=== PATIENT | male | born 1935 | race African-American/Black ===

== ENCOUNTER 2019-06-17 22:45 | Emergency (ER) | payer MEDICARE, OTHER, SELFPAY ==
[2019-06-17 22:45] VITALS: BP 156/49; PULSE 41; RESP 18; O2SAT 98; BMI 26.2
--- NOTE | 2019-06-17 23:02 | ED.DIZZY ---
HPI - Dizziness General Chief Complaint: Dizziness Stated Complaint: possible heart attack Time Seen by Provider: 06/17/19 23:01 Source: patient Mode of arrival: ambulatory Limitations: no limitations History of Present Illness HPI Narrative: The patient was at [place] nearby [place] prior to arrival. He was still abdominal pressure, he had to go the bathroom. When he stood he felt abdominal pressure but became acutely dizzy. With the dizziness there was no visual changes, speech changes, focal weakness or numbness. He has not been confused. He remains dizzy upon arrival here in the ER. He has no chest pain or dyspnea. He had abdominal pressure, is no nausea vomiting. He has no history of syncope. He has a history of coronary artery disease. He has no history of mine, but he does have a history of cardiac catheterization with stent placement. He takes medications for hypertension. He is not diabetic. Related Data Previous Rx's Medication Instructions Recorded meclizine 25 mg PO QID PRN #20 tab 06/18/19 Allergies Allergy/AdvReac Type Severity Reaction Status Date / Time No Known Drug Allergies Allergy Verified 06/17/19 23:14 Review of Systems Review of Systems ROS Unobtainable: All systems reviewed & are unremarkable except as noted in HPI and below Constitutional Denies body ache(s), Denies chills, Denies fatigue, Denies fever(s), Denies headache(s), Denies lethargy and Denies malaise Eyes Denies change in vision ENT Ears, Nose, Mouth, and Throat: Reports dizziness, Denies facial pain and Denies headache(s) Cardiovascular Denies chest pain, Denies diaphoresis, Denies syncope, Denies leg edema, Denies dyspnea and Denies dyspnea on exertion Respiratory Denies cough, Denies dyspnea and Denies dyspnea on exertion Gastrointestinal Gastrointestinal: Denies abdominal pain, Denies diarrhea, Denies nausea and Denies vomiting Genitourinary Denies dysuria Musculoskeletal Denies back pain Integumentary/Breasts Denies lesions and Denies rash Neurologic Denies confusion, Reports dizziness, Denies syncope and Denies headache(s) Psychiatric Denies anxiety, Denies confusion and Denies depression Endocrine Denies fatigue [facility] Medical History (Updated 06/18/19 @ 04:31 by Master Corona MD) Coronary artery disease (Acute) Hypertension (Acute) Surgical History (Updated 06/18/19 @ 04:25 by Master Corona MD) S/P angioplasty with stent (Acute) Social History Smoking Status: Current every day smoker Social History Smoking Status: Current every day smoker Exam Initial Vital Signs Initial Vital Signs: Vital Signs Pulse Rate 41 L 06/17/19 22:45 Respiratory Rate 18 06/17/19 22:45 Blood Pressure 156/49 H 06/17/19 22:45 Pulse Oximetry 98 06/17/19 22:45 Const General: cooperative, healthy appearing, well developed, well groomed and other (Appears uncomfortable) HENMT Head: normocephalic and atraumatic Ears: external ears normal and TM's normal bilaterally Nose: external nose normal Face and sinus: sinuses nontender and face symmetric Mouth: oral mucosae normal and moist mucous membranes Eyes Sclera: sclerae normal Pupils: PERRL EOM: EOM intact bilaterally Neck Neck: supple, No lymphadenopathy, No midline deformity and No JVD Chest Chest: normal palpation of entire chest wall Resp Auscultation: clear to auscultation bilaterally Cardio Rate: regular rate and bradycardic Rhythm: regular rhythm Heart Sounds: S1 normal, S2 normal, no murmurs and no rubs GI Inspection: non-distended Palpation: soft, no hepatosplenomegaly and No tender Auscultation: normal bowel sounds Back/Spine/Pelvis Back: No CVA tenderness Skin General: no rashes or lesions noted and No petechiae Neuro General: alert, oriented x3, gait normal and no focal motor deficits Speech: speech normal Extrem General: full ROM, no clubbing, cyanosis or edema and no calf tenderness Psych Appearance: well kempt Mental Status: mental status grossly normal Attitude: cooperative Thought Content: normal and suicidality Judgment: judgment good Scores NIH Stroke Scale Level of Conciousness: Alert, keenly responsive Ask month/age: Answers both questions correctly. Open/close eyes, close hand: Performs both tasks correctly Best gaze horizontal: Normal Visual hawkins: No visual loss Facial palsy: Normal symetrical movement Left arm drift: No drift for full 10 sec Right arm drift: No drift for full 10 sec Left leg drift: No drift for full 10 sec Right leg drift: No drift for full 10 sec Limb ataxia: Absent Sensory on face/arms/legs: Normal, no sensory loss Best language: No aphasia, normal Dysarthria: Normal Extinction or inattention: No abnormality Total NIH Stroke scale score: 0 Course Course Narrative: On his initial evaluation, the patient was bradycardic in rate of 40s. He was in a sinus rhythm. He had improved since arrival. Later is heart rate was reestablished in 70s, remaining normal sinus rhythm. There are no other significant EKG findings. He is then asymptomatic. I am concerned that there is a significant underlying arrhythmia that may have initiated the dizziness. Does not been discovered tonight. His evaluation including head CT is otherwise benign. I did give him meclizine for dizziness, this may have helped the dizziness. He will be discharged on meclizine. He is referred back to his private doctor, Dr. Kelsey, for continued evaluation. I would recommend a cardiac monitoring evaluation Orders Ordered: ED Orders 06/17/19 22:55 Complete Blood Count AUTO DIFF Stat Comprehensive Metabolic Panel Stat Troponin & CK Cardiac Panel Stat 06/17/19 23:02 EKG-12 Lead Stat 06/17/19 23:55 CT head/brain wo con Stat 06/18/19 EKG-12 Lead Stat 06/18/19 03:13 Troponin I Stat Discontinued Medications Sodium Chloride (Normal Saline 0.9%) 1,000 mls @ 150 mls/hr IV CONT VAISHALI Last Infusion: 06/18/19 04:54 Dose: 0 mls/hr Infusion: 06/18/19 04:52 Dose: 150 mls/hr Admin: 06/17/19 23:18 Dose: 150 mls/hr Meclizine HCl (Antivert) 50 mg PO NOW ONE Stop: 06/17/19 23:56 Last Admin: 06/18/19 00:14 Dose: 50 mg Ondansetron HCl (Zofran) 4 mg IV NOW ONE Stop: 06/17/19 23:16 Last Admin: 06/17/19 23:18 Dose: 4 mg Vital Signs - 8 hr 06/17/19 22:45 06/17/19 23:11 06/17/19 23:30 Temperature Pulse Rate 41 L 37 L 39 L Respiratory Rate 18 10 L 13 Blood Pressure 156/49 H Blood Pressure [Left Arm] 122/65 122/44 L Pulse Oximetry 98 95 100 06/17/19 23:35 06/18/19 00:25 06/18/19 01:09 Temperature 97.9 F Pulse Rate 39 L 43 L 47 L Respiratory Rate 10 L 16 13 Blood Pressure Blood Pressure [Left Arm] 122/44 L 141/73 H 129/53 L Pulse Oximetry 99 98 96 06/18/19 01:44 06/18/19 02:01 06/18/19 02:30 Temperature Pulse Rate 63 50 L 65 Respiratory Rate 11 L 15 14 Blood Pressure Blood Pressure [Left Arm] 134/63 128/61 133/69 Pulse Oximetry 100 96 100 06/18/19 02:51 06/18/19 03:00 06/18/19 04:07 Temperature Pulse Rate 66 83 59 L Respiratory Rate 12 22 13 Blood Pressure Blood Pressure [Left Arm] 133/69 133/69 140/67 Pulse Oximetry 99 98 100 06/18/19 04:30 06/18/19 04:53 Temperature Pulse Rate 70 74 Respiratory Rate 16 20 Blood Pressure 116/77 Blood Pressure [Left Arm] 140/80 Pulse Oximetry 97 98 MDM - Dizziness Lab Data Result diagrams: 06/17/19 22:55 06/17/19 22:55 Lab Results 06/17/19 06/17/19 06/18/19 Range/Units 22:55 22:55 03:13 WBC 7.5 (4.5-11.0) X10^3/uL RBC 4.86 (4.5-5.9) X10^6/uL Hgb 14.4 (13.5-17.5) g/dL Hct 43.2 (41-53) % MCV 89.0 (80-100) fL MCH 29.6 (26-34) PG MCHC 33.2 (30-36) % RDW 14.8 (11.6-14.8) % Plt Count 215 (150-400) X10^3/uL Neut % (Auto) 46.7 L (50-75) % Lymph % (Auto) 40.8 H (25-40) % [place] % (Auto) 9.5 (3-14) % Eos % (Auto) 2.2 (2-4) % Baso % (Auto) 0.8 (0-2) % Neut # (Auto) 3500 (1059-7792) /uL Lymph # (Auto) 3100 (4205-3704) /uL [place] # (Auto) 700 (0-900) /uL Eos # (Auto) 200 (0-450) /uL Baso # (Auto) 100 (0-100) /uL Sodium 136 L (137-145) mmol/L Potassium 3.4 (3.4-5.1) mmol/L Chloride 103 (98-107) mmol/L Carbon Dioxide 26 (22-32) mmol/L BUN 15 (9-20) mg/dL Creatinine 0.90 (0.66-1.25) mg/dL Estimated GFR > 60.0 (>60) mL/min BUN/Creatinine Ratio 16.7 (6-22) Glucose 142 H (80-110) mg/dL Calcium 9.2 (8.4-10.2) mg/dL Total Bilirubin 0.5 (0.2-1.3) mg/dL AST 28 (17-59) IU/L ALT 22 (21-72) IU/L Alkaline Phosphatase 110 (38-126) U/L Total Creatine Kinase 165 (55-170) U/L CK-MB (CK-2) 1.83 (<2.37) ng/mL CK-MB (CK-2) Rel Index 1.1 L (1.5-5.0) % Troponin I < 0.012 < 0.012 (0.01-0.034) ng/mL Total Protein 7.0 (6.3-8.2) g/dL Albumin 4.2 (3.5-5.0) g/dL Globulin 2.8 (1.7-4.1) g/dL Albumin/Globulin Ratio 1.5 (1.0-2.8) Point of Care Testing Glucose POC [address] scan - head: Radiologist's impression: Nonspecific periventricular deep white matter disease. No acute findings. ECG Data Attestation: I personally reviewed and interpreted this ECG as follows: (EKG 1: Sinus bradycardia rate 30 beats per minute. LAFB. Old anterior Q-waves, no acute ST T wave changes. EKG 2: Normal sinus rhythm rate 70 beats per minute. LAFB. No ectopy. No acute ST T wave changes. ) Discharge Plan Departure Patient Disposition: Home Clinical Impression: Dizziness, Bradycardia Discharge Date/Time: 06/18/19 04:56 Interventions: ED Discharge Assessment Last Done: 06/18/19 04:53 Instructions: Bradycardia, DI for Dizziness-Nonvertigo Activity Restrictions/Additional Instructions: Continue to take current medications. Be sure you take 1 aspirin daily. Meclizine every 6 hours for dizziness. Follow-up with her doctor for further evaluation. Be sure your physician understand her heart rate was slow, this may be related to her dizziness. Return to the ER as needed. Prescriptions: New meclizine 25 mg tablet 25 mg PO QID PRN (Reason: dizziness) Qty: 20 RF: 0
[2019-06-17 23:11] VITALS: BP 122/65; PULSE 37; RESP 10; O2SAT 95
[2019-06-17 23:16] LABS: Add Manual Diff / Slide Review NO; Basophils Absolute Auto 100 /uL (0-100); Basophils Percent Auto 0.8 % (0-2); Eosinophils Absolute Auto 200 /uL (0-450); Eosinophils Percent Auto 2.2 % (2-4); Hematocrit 43.2 % (41-53); Hemoglobin 14.4 g/dL (13.5-17.5); Lymphocytes Absolute Auto 3100 /uL (1100-4500); Lymphocytes Percent Auto 40.8 % (25-40); Mean Corpuscular HGB Conc 33.2 % (30-36); Mean Corpuscular Hemoglobin 29.6 PG (26-34); Monocytes Absolute Auto 700 /uL (0-900); Monocytes Percent Auto 9.5 % (3-14); Neutrophils Absolute Auto 3500 /uL (1500-7000); Neutrophils Percent Auto 46.7 % (50-75); Platelet Count 215 X10^3/uL (150-400); Red Blood Cell Count 4.86 X10^6/uL (4.5-5.9); Red Cell Distribution Width 14.8 % (11.6-14.8); White Blood Cell Count 7.5 X10^3/uL (4.5-11.0)
[2019-06-17] MEDS: ONDANSETRON 4 MG/2 ML INJ IV (23:18)
[2019-06-17] MEDS: SODIUM CHLORIDE 0.9% 1,000 ML 150 ML IV (23:18)
[2019-06-17 23:19] LABS: Alanine Aminotransferase 22 IU/L (21-72); Albumin 4.2 g/dL (3.5-5.0); Albumin Globulin Ratio 1.5 (1.0-2.8); Alkaline Phosphatase 110 U/L (38-126); Aspartate Aminotransferase 28 IU/L (17-59); BUN Creatinine Ratio 16.7 (6-22); Bilirubin Total 0.5 mg/dL (0.2-1.3); Blood Urea Nitrogen 15 mg/dL (9-20); Calcium 9.2 mg/dL (8.4-10.2); Carbon Dioxide 26 mmol/L (22-32); Chloride 103 mmol/L (98-107); Creatine Kinase 165 U/L (55-170); Estimated Glomerular Filt Rate > 60.0 mL/min (>60); Globulin 2.8 g/dL (1.7-4.1); Glucose 142 mg/dL (80-110); HEMOLYSIS 15 (0-50); Potassium 3.4 mmol/L (3.4-5.1); Sodium 136 mmol/L (137-145)
[2019-06-17 23:30] VITALS: BP 122/44; PULSE 39; RESP 13; O2SAT 100
[2019-06-17 23:31] LABS: Troponin I < 0.012 ng/mL (0.01-0.034)
[2019-06-17 23:35] VITALS: BP 122/44; PULSE 39; RESP 10; TEMP 36.6; O2SAT 99
[2019-06-17 23:35] LABS: CKMB % Relative Index 1.1 % (1.5-5.0); Creatine Kinase MB 1.83 ng/mL (<2.37)
--- NOTE | 2019-06-17 23:47 | PC.NURSE ---
Pt arrived POV. C/o dizziness and diaphoresis. Placed on monitor and ECG done. Sinus bradycardia. Denied chest pain but states having cardiac history and a stent placement ''a few years back. On blood thinners but unable to provide staff with medication list. family at bedside. indicate pt had episode of near syncope and dizziness after [place] the [place]. Denied any drug use or alcohol consumption today. C/o nausea and requesting to use the BR for a BM. Bedside commode provided. Pt RR on the low 11's. CO2 readings 35-40. Placed on O2. Awaiting on CT studies. Will continue to monitor.
--- NOTE | 2019-06-17 23:55 | DI.CT.S_ITS ---
PROCEDURE: CT HEAD/BRAIN WO CON INDICATIONS: Dizziness, sudden onset TECHNIQUE: Noncontrast 4.5 mm thick angled axial sections acquired from the foramen magnum to the vertex, with coronal and sagittal reformats. For radiation dose reduction, the following was used: automated exposure control, adjustment of mA and/or kV according to patient size. COMPARISON: None. FINDINGS: Image quality: Excellent. CSF spaces: Basal cisterns are patent. No extra-axial fluid collections. The ventricles are symmetric in size and shape. Brain: No intracranial bleeds or masses. There is cerebral volume loss for age, with resultant ventricular and sulcal prominence. There are periventricular and deep white matter chronic small vessel ischemic changes. There is intracranial internal carotid artery atherosclerosis. Skull and face: Calvarium and visualized facial bones appear intact, without suspicious lesions. Sinuses: Visualized sinuses and mastoids are clear. IMPRESSION: 1. No acute intracranial findings. 2. Findings likely associated with chronic microvascular ischemia. These findings are concordant with the overnight interpretation. Dictated by: Jo Ann Guerrero M.D. on 06/18/2019 at 6:46 Approved by: Jo Ann Guerrero M.D. on 06/18/2019 at 6:49
[2019-06-18] VITALS (10 sets, daily range): BP systolic 116–141; BP diastolic 53–80; PULSE 43–83; RESP 11–22; O2SAT 96–100
[2019-06-18] MEDS: MECLIZINE HCL 12.5 MG TABLET 50 MG PO (00:14)
--- NOTE | 2019-06-18 01:12 | PC.NURSE ---
Pt resting comfortably at this time. Family at bedside. NAD. Awaiting on CT results and MD's disposition. Will continue to monitor.
--- NOTE | 2019-06-18 03:12 | PC.NURSE ---
NAD. pt awke at this time. Denies any discomfort. V/S stable. ECG repeated and second set of trop in progress. pt to f/u with cardiology for possible halter device and r/o sleep apnea studies. Pt and family verbalized understanding of plan of care and f/u instructions. Will continue to monitor.
[2019-06-18 03:42] LABS: Troponin I < 0.012 ng/mL (0.01-0.034)
== END 2019-06-18 04:56 | disposition home or self-care (01) ==
PROVIDERS: Emergency Provider Emergency Medicine
DX: R42 Dizziness and giddiness (principal); R00.1 Bradycardia, unspecified; R10.9 Unspecified abdominal pain; Z95.5 Presence of coronary angioplasty implant and graft
CPT/HCPCS: 36415; 36591; 70450; 80053; 82550; 82553; 82962; 84484; 85025; 93005; 96361; 96374; 99285; J2405

== ENCOUNTER 2023-05-31 18:22 | Emergency (ER) | payer MEDICARE, OTHER, SELFPAY ==
[2023-05-31 18:26] VITALS: BP 172/79; PULSE 70; RESP 18; TEMP 36.3; O2SAT 100; BMI 26.4
[2023-05-31 19:30] LABS: Add Manual Diff / Slide Review NO; Basophils Absolute Auto 0 /uL (0-100); Basophils Percent Auto 0.7 % (0-2); Eosinophils Absolute Auto 200 /uL (0-450); Eosinophils Percent Auto 2.7 % (2-4); Hematocrit 40.3 % (41-53); Hemoglobin 13.8 g/dL (13.5-17.5); Lymphocytes Absolute Auto 1900 /uL (1100-4500); Lymphocytes Percent Auto 25.5 % (25-40); Mean Corpuscular HGB Conc 34.3 % (30-36); Mean Corpuscular Hemoglobin 29.6 PG (26-34); Mean Corpuscular Volume 86.3 fL (80-100); Monocytes Absolute Auto 600 /uL (0-900); Monocytes Percent Auto 7.6 % (3-14); Neutrophils Absolute Auto 4800 /uL (1500-7000); Neutrophils Percent Auto 63.5 % (50-75); Platelet Count 225 X10^3/uL (150-400); Red Blood Cell Count 4.67 X10^6/uL (4.5-5.9); Red Cell Distribution Width 15.1 % (11.6-14.8); White Blood Cell Count 7.5 X10^3/uL (4.5-11.0)
[2023-05-31 19:45] LABS: Alanine Aminotransferase 20 IU/L (<50); Albumin Globulin Ratio 1.3 (1.0-2.8); Alkaline Phosphatase 131 U/L (38-126); Aspartate Aminotransferase 24 IU/L (17-59); BUN Creatinine Ratio 18.4 (6-22); Bilirubin Total 0.5 mg/dL (0.2-1.3); Blood Urea Nitrogen 16 mg/dL (9-20); Calcium 9.1 mg/dL (8.4-10.2); Carbon Dioxide 25 mmol/L (22-32); Chloride 100 mmol/L (98-107); Estimated Glomerular Filt Rate > 60 mL/min (>60); Globulin 3.1 g/dL (1.7-4.1); Glucose 151 mg/dL (80-110); HEMOLYSIS < 15 (0-50); Potassium 3.6 mmol/L (3.4-5.1); Sodium 134 mmol/L (137-145); Total Protein 7.1 g/dL (6.3-8.2)
[2023-05-31 21:58] LABS: Bilirubin Urine UA NEGATIVE (NEGATIVE); Glucose Urine UA NEGATIVE (Negative); Ketones Urine UA NEGATIVE (NEGATIVE); Leukocyte Esterase Urine UA TRACE (NEGATIVE); Nitrite Urine UA NEGATIVE (Negative); Occult Blood Urine UA 3+ (Negative); Protein Urine UA TRACE (Negative); Specific Gravity Urine UA 1.015 (1.000-1.035); Urobilinogen Urine UA 0.2 E.U./dL (0.2)
[2023-05-31 21:59] LABS: Appearance Urine UA Slightly Cloudy; Color Urine UA PINK
[2023-05-31 22:11] LABS: Bacteria Urine None Seen; Culture Indicated Urine Specimen Cultured; RBC Urine >100/HPF (0-5/HPF); Squamous Epithelial Cell Urine None Seen (0-5/HPF); WBC Urine 0-1/HPF (0-5/HPF)
--- NOTE | 2023-05-31 22:15 | ED_ITS ---
HPI - Male Genitourinary General Chief complaint: Urogenital-Male Stated complaint: blood in urine Time Seen by Provider: 05/31/23 20:34 Source: patient Mode of arrival: Wheelchair History of Present Illness HPI Narrative: Patient is a katy 80-year-old gentleman history of coronary artery need with stent, CVA, TURP presenting today with 5 days of hematuria dizziness shakiness and lightheadedness. He reports every time he stands up he gets dizzy and lightheaded he is passed out falling down. He denies any chest pain or shortness of breath. He feels very unsteady. No focal deficits no visual changes. He is a little bit cool and chilled room but has not had fever chills or sweating. He is a chronic cough thought to be due to allergies. No abdominal pain. He reports that his urine has clots in if sometimes being sometimes red he was worried he might be bleeding out which was why he dizzy and lightheaded. He does take Plavix Related Data Previous Rx's Medication Instructions Recorded meclizine 25 mg tablet 25 mg PO QID PRN dizziness #20 tabs 06/18/19 Allergies Allergy/AdvReac Type Severity Reaction Status Date / Time No Known Drug Allergies Allergy Verified 05/31/23 18:26 Review of Systems Review of Systems ROS Unobtainable: All systems reviewed & are unremarkable except as noted in HPI and below Patient History Medical History Coronary artery disease Hypertension Surgical History S/P angioplasty with stent Social History Smoking Status: Current every day smoker Smoking Status: Current every day smoker Substance Use Type: does not use Exam Initial Vital Signs Initial Vital Signs: Vital Signs Temperature 97.3 F L 05/31/23 18:26 Pulse Rate 70 05/31/23 18:26 Respiratory Rate 18 05/31/23 18:26 Blood Pressure 172/79 H 05/31/23 18:26 Pulse Oximetry 100 05/31/23 18:26 Oxygen Delivery Method Room Air 05/31/23 18:26 GENERAL: Alert well-appearing 81-year-old male and in no acute distress. HEENT: Head atraumatic,EOMI, pupils reactive, face symmetric, moist mucous membranes CARDIOVASCULAR: Regular rate and rhythm without murmurs, rubs or gallops. RESPIRATORY: Breath sounds equal bilaterally, no wheezes rales or rhonchi. ABDOMEN: Soft, nontender. Normoactive bowel sounds all 4 quadrants. No g uarding or rebound. EXTREMITIES: Normal range of motion, no clubbing or edema. Neurovascularly inta ct NEUROLOGICAL: Alert and oriented x4.Normal gait and speech. Cranial nerves II through XII grossly intact. Good [id number], good [id number], strength equal bilaterally, no dysarthria or aphasia, sensation in tact to soft touch bilaterally, no visual changes, no facial droop SKIN: Warm, dry, no laceration, no petechiae, no rashes or lesions. Course Orders Ordered: ED Orders 05/31/23 21:05 UA Complete [Urinalysis and Microscopic] Stat Urine Culture Stat 05/31/23 22:31 Chest [XR chest 1V] Stat 05/31/23 22:32 EKG-12 Lead Stat 05/31/23 22:45 Covid-19 + FLU A/B + RSV - PCR Stat Discontinued Medications Sodium Chloride (Normal Saline 0.9%) 1,000 mls @ 1,000 mls/hr IV BOLUS ONE Stop: 05/31/23 23:30 Last Infusion: 05/31/23 23:38 Dose: 0 mls/hr Documented By: Admin: 05/31/23 22:47 Dose: 1,000 mls/hr Documented By: CHRISSY Vital Signs Vital signs: Vital Signs - 8 hr 05/31/23 22:48 05/31/23 22:50 05/31/23 22:50 Pulse Rate 82 Blood Pressure 193/91 H Pulse Oximetry 88 L 99 05/31/23 22:52 05/31/23 22:52 05/31/23 23:00 Pulse Rate 72 Blood Pressure 180/84 H 162/85 H Pulse Oximetry 100 05/31/23 23:00 06/01/23 00:10 06/01/23 00:11 Pulse Rate 67 70 Blood Pressure Pulse Oximetry 99 98 98 06/01/23 00:11 Pulse Rate Blood Pressure 160/83 H Pulse Oximetry MDM - Male Genitourinary Lab Data 05/31/23 18:35 05/31/23 18:35 Labs: Lab Results 05/31/23 05/31/23 05/31/23 Range/Units 18:35 18:35 18:35 WBC 7.5 (4.5-11.0) X10^3/uL RBC 4.67 (4.5-5.9) X10^6/uL Hgb 13.8 (13.5-17.5) g/dL Hct 40.3 L (41-53) % MCV 86.3 (80-100) fL MCH 29.6 (26-34) PG MCHC 34.3 (30-36) % RDW 15.1 H (11.6-14.8) % Plt Count 225 (150-400) X10^3/uL Neut % (Auto) 63.5 (50-75) % Lymph % (Auto) 25.5 (25-40) % [place] % (Auto) 7.6 (3-14) % Eos % (Auto) 2.7 (2-4) % Baso % (Auto) 0.7 (0-2) % Neut # (Auto) 4800 (6451-7085) /uL Lymph # (Auto) 1900 (8297-5951) /uL [place] # (Auto) 600 (0-900) /uL Eos # (Auto) 200 (0-450) /uL Baso # (Auto) 0 (0-100) /uL Sodium 134 L (137-145) mmol/L Potassium 3.6 (3.4-5.1) mmol/L Chloride 100 (98-107) mmol/L Carbon Dioxide 25 (22-32) mmol/L BUN 16 (9-20) mg/dL Creatinine 0.87 (0.66-1.25) mg/dL Estimated GFR > 60 (>60) mL/min BUN/Creatinine Ratio 18.4 (6-22) Glucose 151 H (80-110) mg/dL Calcium 9.1 (8.4-10.2) mg/dL Total Bilirubin 0.5 (0.2-1.3) mg/dL AST 24 (17-59) IU/L ALT 20 (<50) IU/L Alkaline Phosphatase 131 H (38-126) U/L Total Creatine Kinase (55-170) U/L Troponin I (0.01-0.034) ng/mL Total Protein 7.1 (6.3-8.2) g/dL Albumin 4.0 (3.5-5.0) g/dL Globulin 3.1 (1.7-4.1) g/dL Albumin/Globulin Ratio 1.3 (1.0-2.8) Urine Color Urine Appearance Urine pH (4.5-8.0) Ur Specific [place] (1.000-1.035) Urine Protein (Negative) Urine Glucose (UA) (Negative) g/dL Urine Ketones (NEGATIVE) Urine Occult Blood (Negative) Urine Nitrate (Negative) Urine Bilirubin (NEGATIVE) Urine Urobilinogen (0.2) E.U./dL Ur Leukocyte Esterase (NEGATIVE) Urine RBC (0-5/HPF) Urine WBC (0-5/HPF) Ur Squamous Epith Cells (0-5/HPF) Urine Bacteria (None) Ur Culture Indicated? SARS-CoV-2 (PCR) (Negative) Influenza A (RT-PCR) (NEGATIVE) Influenza B (RT-PCR) (NEGATIVE) RSV (PCR) (Negative) Blood Type O Positive Antibody Screen Negative 05/31/23 05/31/23 05/31/23 Range/Units 18:35 21:05 22:45 WBC (4.5-11.0) X10^3/uL RBC (4.5-5.9) X10^6/uL Hgb (13.5-17.5) g/dL Hct (41-53) % MCV (80-100) fL MCH (26-34) PG MCHC (30-36) % RDW (11.6-14.8) % Plt Count (150-400) X10^3/uL Neut % (Auto) (50-75) % Lymph % (Auto) (25-40) % [place] % (Auto) (3-14) % Eos % (Auto) (2-4) % Baso % (Auto) (0-2) % Neut # (Auto) (5524-1598) /uL Lymph # (Auto) (9901-9673) /uL [place] # (Auto) (0-900) /uL Eos # (Auto) (0-450) /uL Baso # (Auto) (0-100) /uL Sodium (137-145) mmol/L Potassium (3.4-5.1) mmol/L Chloride (98-107) mmol/L Carbon Dioxide (22-32) mmol/L BUN (9-20) mg/dL Creatinine (0.66-1.25) mg/dL Estimated GFR (>60) mL/min BUN/Creatinine Ratio (6-22) Glucose (80-110) mg/dL Calcium (8.4-10.2) mg/dL Total Bilirubin (0.2-1.3) mg/dL AST (17-59) IU/L ALT (<50) IU/L Alkaline Phosphatase (38-126) U/L Total Creatine Kinase 99 (55-170) U/L Troponin I < 0.012 (0.01-0.034) ng/mL Total Protein (6.3-8.2) g/dL Albumin (3.5-5.0) g/dL Globulin (1.7-4.1) g/dL Albumin/Globulin Ratio (1.0-2.8) Urine Color [place] Urine Appearance Slightly cloudy Urine pH 5.0 (4.5-8.0) Ur Specific [place] 1.015 (1.000-1.035) Urine Protein Trace H (Negative) Urine Glucose (UA) Negative (Negative) g/dL Urine Ketones Negative (NEGATIVE) Urine Occult Blood 3+ H (Negative) Urine Nitrate Negative (Negative) Urine Bilirubin Negative (NEGATIVE) Urine Urobilinogen 0.2 (0.2) E.U./dL Ur Leukocyte Esterase Trace H (NEGATIVE) Urine RBC >100/hpf H (0-5/HPF) Urine WBC 0-1/hpf (0-5/HPF) Ur Squamous Epith Cells None seen (0-5/HPF) Urine Bacteria None seen (None) Ur Culture Indicated? Specimen cultured SARS-CoV-2 (PCR) Negative (Negative) Influenza A (RT-PCR) Flu a negative (NEGATIVE) Influenza B (RT-PCR) Flu b negative (NEGATIVE) RSV (PCR) Negative (Negative) Blood Type Antibody Screen Urine Dip Bedside Urine Glucose Negative Bedside Urine Bilirubin - Negative Bedside Urine Ketone - Negative Urine Specific [place] 1.015 Bedside Urine Occult Blood +++ Bedside Urine pH 6.0 Bedside Urine Protein +/- 15 Bedside Urine Urobilinogen - Negative Bedside Urine Nitrite - Negative Bedside Urine Leukocytes +/- 15 Esterase Imaging Data Chest x-ray: Radiologist's Impression: PROCEDURE:? XR CHEST 1V ? INDICATIONS:? weakness ? TECHNIQUE:? One view of the chest was acquired.? ? COMPARISON:? [facility], , CHEST 2 VIEW, 05/30/2008, 8:11. ? FINDINGS:? ? Surgical changes and devices:? None.? ? Lungs and pleura:? Lungs are clear.? No pleural effusions or pneumothorax.? ? Mediastinum:? Mediastinal contours appear normal.? Heart size is normal.? ? Bones and chest wall:? No suspicious bony lesions.? Overlying soft tissues appear unremarkable.? ? IMPRESSION:? ? 1.? No acute cardiopulmonary disease. ECG Data Interpretation: Sinus rhythm rate 60 NH interval 204 QRS [address] changes or T-wave inversions slightly different from previous MDM Narrative Medical decision making narrative: Patient 80-year-old male history of coronary artery disease and CVA presenting today with hematuria. He is had some dizziness and shaking as well. No fever or chills. He is not anemic. Initial urine was read as pink. He urinated again I saw myself is not grossly bloody or pink but there are possible clots. He is no evidence of infection. Blood work is overall reassuring he has no leukocytosis or anemia electrolytes are stable with a sodium of 134 normal creatinine a negative troponin. Viral panel is also negative. At this time he is likely having hematuria the oxygen weaned it is not consistent or grossly bloody. He takes Plavix. At this time does not need a Kolb catheter continuous irrigation. His urine cleared on its own. Discussion with family warning signs and when to return to the ED. All questions have been addressed. Discharge Plan Departure Patient Disposition: Home Clinical Impression: Hematuria Instructions: DI for Hematuria Activity Restrictions/Additional Instructions: *You have been diagnosed with hematuria *What to do: At this time please follow-up with your primary care provider on Thursday as scheduled. No evidence of infection. Urine CT get pink and then clear again. However if it is grossly bloody you cut yourself or your unable to urinate then he must return to the emergency department. *Continue to take medications as directed *Follow up with your primary care provider in 2-3 days or call [phone] *Return to ER if you should have increased dizziness passing out bloody urine or any new, worsening or concerning symptoms Prescriptions: No Action meclizine 25 mg tablet 25 mg PO QID PRN (Reason: dizziness) Qty: 20 0RF Stand Alone Forms: Patient Portal/API
--- NOTE | 2023-05-31 22:31 | DI.RAD.S_ITS ---
PROCEDURE: XR CHEST 1V INDICATIONS: weakness TECHNIQUE: One view of the chest was acquired. COMPARISON: [facility], , CHEST 2 VIEW, 05/30/2008, 8:11. FINDINGS: Surgical changes and devices: None. Lungs and pleura: Lungs are clear. No pleural effusions or pneumothorax. Mediastinum: Mediastinal contours appear normal. Heart size is normal. Bones and chest wall: No suspicious bony lesions. Overlying soft tissues appear unremarkable. IMPRESSION: 1. No acute cardiopulmonary disease. Dictated by: Dre Norton M.D. on 05/31/2023 at 22:52 Approved by: Dre Norton M.D. on 05/31/2023 at 22:53
[2023-05-31] MEDS: SODIUM CHLORIDE 0.9% 1,000 ML 1000 ML IV (22:47)
[2023-05-31 22:48] VITALS: O2SAT 88
[2023-05-31 22:50] VITALS: BP 193/91; PULSE 82; O2SAT 99
[2023-05-31 22:52] VITALS: BP 180/84; PULSE 72; O2SAT 100
[2023-05-31 23:00] VITALS: BP 162/85; PULSE 67; O2SAT 99
[2023-05-31 23:04] LABS: Creatine Kinase 99 U/L (55-170)
[2023-05-31 23:17] LABS: Troponin I < 0.012 ng/mL (0.01-0.034)
[2023-05-31 23:39] LABS: Influenza A - CEPHEID Flu A NEGATIVE (NEGATIVE); Influenza B - CEPHEID Flu B NEGATIVE (NEGATIVE); Respiratory Syncytial Virus Negative (Negative)
[2023-05-31 23:41] LABS: COVID-19 CEPHEID 4-PLEX PCR Negative (Negative)
[2023-06-01 00:10] VITALS: O2SAT 98
[2023-06-01 00:11] VITALS: BP 160/83; PULSE 70; O2SAT 98
== END 2023-06-01 00:18 | disposition home or self-care (01) ==
PROVIDERS: Emergency Provider Emergency Medicine
DX: R31.9 Hematuria, unspecified (principal); R07.9 Chest pain, unspecified; Z20.822 Contact with and (suspected) exposure to COVID-19
CPT/HCPCS: 0241U; 36415; 71045; 80053; 81001; 81003; 82550; 84484; 85025; 86850; 86900; 86901; 87086; 93005; 93010; 96360; 99284

== ENCOUNTER 2025-01-20 09:59 | Inpatient (IN) | payer MEDICARE, OTHER, SELFPAY ==
[2025-01-20] VITALS (27 sets, daily range): BP systolic 127–150; BP diastolic 63–74; PULSE 71–97; RESP 12–29; TEMP 37.6; O2SAT 95–100; BMI 22.0; BMI 22.5
--- NOTE | 2025-01-20 10:35 | DI.RAD.S_ITS ---
PROCEDURE: XR CHEST 1V INDICATIONS: suspected sepsis TECHNIQUE: One view of the chest was acquired. COMPARISON: [facility], CT, CT STROKE, 11/02/2024, 14:56. [facility], CT, CT ANGIO HEAD AND NECK, 11/02/2024, 14:56. [facility], CR, XR CHEST 1V, 05/31/2023, 22:28. FINDINGS: Surgical changes and devices: None. Lungs and pleura: Lungs are clear. No pleural effusions or pneumothorax. Mediastinum: Mediastinal contours appear normal. Heart size is normal. Bones and chest wall: No suspicious bony lesions. Overlying soft tissues appear unremarkable. IMPRESSION: No acute cardiopulmonary abnormality is seen. Dictated by: Harman Grant M.D. on 01/20/2025 at 11:25 Approved by: Harman Grant M.D. on 01/20/2025 at 11:28
--- NOTE | 2025-01-20 10:36 | EKG_ITS ---
[address] [id number] Test Date: 2025-01-20 Pat Name: Drake Hickey Department: Room: Gender: Male Vamp Maker: AWILDA : 1935 Requested By: Order Number: [id number] Reading MD: Lester Clark MD Measurements Intervals [place] Rate: 77 P: 41 UT: 186 QRS: -41 QRSD: 84 T: 98 QT: 332 QTc: 375 Interpretive Statements Normal sinus rhythm Left axis deviation Inferior infarct , age undetermined Anteroseptal infarct , age undetermined NO SIGNIFICANT CHANGE FROM PRIOR TRACING Electronically Signed On 01-20-2025 13:34:41 PST by Lester Clark MD
--- NOTE | 2025-01-20 10:36 | ED_ITS ---
HPI - Altered Mental Status General Chief Complaint: Altered Mental Status Stated Complaint: High fever, sent ot be checked for infection Time Seen by Provider: 01/20/25 10:35 Source: patient and family Mode of arrival: Wheelchair History of Present Illness HPI narrative: Patient is a male with a history of a craniotomy on November 02 due to a fall and head bleed, who presents with acute onset of confusion, fever, and generalized weakness since this morning. Last known well of yesterday evening before bed The patient has been struggling with daily activities such as eating, brushing teeth, and walking more than 10-15 feet without needing a break. He was unable to manage his medications this morning, which he usually does independently. The patient has a history of urinary tract infections, with the last one occurring five months ago. He is currently on carvedilol, clopidogrel, latanoprost, nitroglycerin as needed, and rosuvastatin. There is no new focal weakness, facial droop, or slurred speech noted. The patient has not complained of chest pain or shortness of breath. Medications: Carvedilol, clopidogrel, latanoprost, nitroglycerin (as needed), rosuvastatin. Past Medical History: Craniotomy on November 02 due to a fall and head bleed, history of urinary tract infections. Surgical History: Craniotomy on November 02. Related Data Previous Rx's Medication Instructions Recorded meclizine 25 mg tablet 25 mg PO QID PRN dizziness #20 tabs 06/18/19 Allergies Allergy/AdvReac Type Severity Reaction Status Date / Time No Known Drug Allergies Allergy Verified 05/31/23 18:26 Review of Systems Review of Systems ROS Unobtainable: All systems reviewed & are unremarkable except as noted in HPI and below Patient History Medical History (Updated 11/17/24 @ 00:00 by ) Stroke Hypertension Coronary artery disease Surgical History S/P angioplasty with stent Social History Smoking Status: Current every day smoker Smoking Status: Current every day smoker Exam Narrative Exam Narrative: General: Appears weak and confused. Skin: Good turgor, no rash, unusual bruising or prominent lesions. Head: Normocephalic, atraumatic. HEENT: Conjunctiva clear, EOM intact, PERRL, Mucous membranes moist. Neck: Supple, normal ROM. Heart: Regular rate and rhythm, no murmur or gallop or rubs. Lungs: Clear to auscultation. No rales, rhonchi, or wheezes. Abdomen: Soft and nontender. Bowel sounds normal. No mass or hernia. Back: Spine normal without deformity or tenderness, no CVA tenderness. Extremities: No deformities, edema. Peripheral pulses intact. Limited range of motion in one arm due to a rotator cuff tear. Neurologic: CN 2-12 normal. Normal sensation and motor exam. No new focal deficits, able to move all extremities, no new facial droop, follows commands. Psychiatric: Normal mood and affect. Initial Vital Signs Initial Vital Signs: Vital Signs Temperature 99.7 F H 01/20/25 10:22 Pulse Rate 79 01/20/25 10:22 Respiratory Rate 16 01/20/25 10:22 Blood Pressure 130/66 01/20/25 10:22 Pulse Oximetry 99 01/20/25 10:22 Oxygen Delivery Method Room Air 01/20/25 10:22 Course Orders Ordered: ED Orders 01/20/25 10:35 XR chest 1V Stat EKG-12 Lead Stat RT Consult Eval and Treat NOW 01/20/25 10:37 CT head/brain wo con Stat 01/20/25 10:40 Complete Blood Count AUTO DIFF Stat Comprehensive Metabolic Panel Stat Lactate (Lactic Acid) Stat Lipase Stat PTT Partial Thromboplastin Crispin Stat Procalcitonin Stat Prothrombin Time INR Stat Troponin I Stat 01/20/25 10:48 Respiratory Panel (Film Array) Stat 01/20/25 10:51 CT angio head and neck Stat 01/20/25 11:31 Blood Culture Stat 01/20/25 13:10 Urine Culture Stat Urine Microscopic Stat Ondansetron HCl (Ondansetron 4 Mg/2 Ml Inj) 4 mg IV NOW PRN PRN Reason: Nausea And Vomiting Ondansetron HCl (Ondansetron 4 Mg Odt) 4 mg SL NOW PRN PRN Reason: Nausea And Vomiting Discontinued Medications Sodium Chloride (Normal Saline 0.9%) 1,000 mls @ 1,000 mls/hr IV BOLUS ONE Stop: 01/20/25 11:34 Last Infusion: 01/20/25 17:02 Dose: Infused Documented By: Admin: 01/20/25 15:30 Dose: 1,000 mls/hr Documented By: ABIDA Ceftriaxone Sodium 1,000 mg/ (Sodium Chloride) 100 mls @ 200 mls/hr IV NOW ONE Stop: 01/20/25 15:15 Last Infusion: 01/20/25 17:03 Dose: Infused Documented By: Admin: 01/20/25 15:25 Dose: 200 mls/hr Documented By: ABIDA Vital Signs Vital signs: Vital Signs - 8 hr 01/20/25 10:31 01/20/25 10:35 01/20/25 10:35 Pulse Rate 80 78 Respiratory Rate 22 Blood Pressure 142/66 H Pulse Oximetry 100 98 Oxygen Delivery Method 01/20/25 11:54 01/20/25 11:54 01/20/25 12:00 Pulse Rate 97 H 90 Respiratory Rate 22 27 H Blood Pressure 133/72 Pulse Oximetry 98 97 Oxygen Delivery Method 01/20/25 12:05 01/20/25 12:05 01/20/25 12:30 Pulse Rate 83 Respiratory Rate 23 Blood Pressure 150/74 H 149/70 H Pulse Oximetry 100 Oxygen Delivery Method 01/20/25 12:30 01/20/25 12:30 01/20/25 13:00 Pulse Rate 82 82 Respiratory Rate 17 14 Blood Pressure 149/70 H Pulse Oximetry 99 99 Oxygen Delivery Method 01/20/25 13:00 01/20/25 13:30 01/20/25 13:31 Pulse Rate 80 88 Respiratory Rate 21 29 H Blood Pressure 144/67 H Pulse Oximetry Oxygen Delivery Method 01/20/25 13:31 01/20/25 14:00 01/20/25 14:00 Pulse Rate 82 Respiratory Rate 26 H Blood Pressure 132/73 147/67 H Pulse Oximetry 99 Oxygen Delivery Method 01/20/25 14:30 01/20/25 14:30 01/20/25 15:00 Pulse Rate 87 Respiratory Rate 25 H Blood Pressure 127/70 134/68 Pulse Oximetry Oxygen Delivery Method 01/20/25 15:00 01/20/25 15:30 01/20/25 15:30 Pulse Rate 80 80 Respiratory Rate 20 22 Blood Pressure 129/65 Pulse Oximetry 100 100 Oxygen Delivery Method 01/20/25 16:00 01/20/25 16:00 02/21/25 16:30 Pulse Rate 86 87 Respiratory Rate 20 20 Blood Pressure 139/65 Pulse Oximetry 96 96 Oxygen Delivery Method 01/20/25 16:30 01/20/25 17:00 01/20/25 17:00 Pulse Rate 87 Respiratory Rate 24 Blood Pressure 136/65 143/72 H Pulse Oximetry 96 Oxygen Delivery Method 01/20/25 17:30 01/20/25 17:30 Pulse Rate 87 Respiratory Rate 22 Blood Pressure 143/68 H Pulse Oximetry 96 Oxygen Delivery Method Room Air MDM - Altered Mental Status Lab Data 01/20/25 10:40 01/20/25 10:40 Labs: Lab Results 01/20/25 01/20/25 01/20/25 Range/Units 10:40 10:48 13:10 WBC 8.0 (4.5-11.0) X10^3/uL RBC 4.63 (4.5-5.9) X10^6/uL Hgb 12.9 L (13.5-17.5) g/dL Hct 39.3 L (41-53) % MCV 84.9 (80-100) fL MCH 27.9 (26-34) PG MCHC 32.9 (30-36) % RDW 18.0 H (11.6-14.8) % Plt Count 222 (150-400) X10^3/uL Neut % (Auto) 75.6 H (50-75) % Lymph % (Auto) 12.7 L (25-40) % [place] % (Auto) 10.9 (3-14) % Eos % (Auto) 0.1 L (2-4) % Baso % (Auto) 0.7 (0-2) % Neut # (Auto) 6100 (7780-4770) /uL Lymph # (Auto) 1000 L (9673-9636) /uL [place] # (Auto) 900 (0-900) /uL Eos # (Auto) 0 (0-450) /uL Baso # (Auto) 100 (0-100) /uL PT 13.3 H (9.4-12.5) SECONDS INR 1.2 (0.9-1.3) APTT 29 (25.1-36.5) SECONDS Sodium 140 (137-145) mmol/L Potassium 3.8 (3.4-5.1) mmol/L Chloride 109 H (98-107) mmol/L Carbon Dioxide 22 (22-32) mmol/L BUN 15 (9-20) mg/dL Creatinine 0.94 (0.66-1.25) mg/dL Estimated GFR > 60 (>60) mL/min BUN/Creatinine Ratio 16.0 (6-22) Glucose 94 (80-110) mg/dL Lactate 1.8 (0.7-2.1) mmol/L Calcium 8.9 (8.4-10.2) mg/dL Total Bilirubin 0.7 (0.2-1.3) mg/dL AST 31 (17-59) IU/L ALT 22 (<50) IU/L Alkaline Phosphatase 93 (38-126) U/L Troponin I 0.017 (0.01-0.034) ng/mL Total Protein 7.0 (6.3-8.2) g/dL Albumin 3.9 (3.5-5.0) g/dL Globulin 3.1 (1.7-4.1) g/dL Albumin/Globulin Ratio 1.3 (1.0-2.8) Lipase 26 (23-300) U/L Procalcitonin 0.088 (<0.5) ng/mL Urine RBC 1-5/hpf (0-5/HPF) Urine WBC 10-30/hpf H (0-5/HPF) Ur Squamous Epith Cells 0-1 /hpf (0-5/HPF) Urine Bacteria Moderate (10-30) H (None) Ur Culture Indicated? Specimen cultured Vol Urine Centrifuged 10ml (spun) Chlamy pneumoniae PCR Not detected (Not Detect) Adenovirus (PCR) Not detected (Not Detect) B. pertussis DNA (PCR) Not detected (Not Detect) B.parapertussis DNA PCR Not detected (Not Detecte) Coronavirus OC43 (PCR) Not detected (Not Detect) Coronavirus HKU1 (PCR) Not detected (Not Detect) Coronavirus 229E (PCR) Not detected (Not Detect) SARS-CoV-2 (PCR) Not detected (Not Detecte) Coronavirus NL63 (PCR) Not detected (Not Detect) Human Metapneumovir PCR Not detected (Not Detect) Influenza Type A (PCR) Not detected (Not Detect) Influenza Type B (PCR) Not detected (Not Detect) M. pneumoniae (PCR) Not detected (Not Detect) Parainfluenza 1 (PCR) Not detected (Not Detect) Parainfluenza 2 (PCR) Not detected (Not Detect) Parainfluenza 3 (PCR) Not detected (Not Detect) Parainfluenza 4 (PCR) Not detected (Not Detect) RSV (PCR) Not detected (Not Detect) Entero/Rhino (PCR) Not detected (Not Detect) Point of Care Testing Test Results Not applicable Urine Dip Bedside Urine Glucose Negative Bedside Urine Bilirubin - Negative Bedside Urine Ketone +/- 5 Urine Specific [place] 1.015 Bedside Urine Occult Blood + Bedside Urine pH 6.5 Bedside Urine Protein +/- 15 Bedside Urine Urobilinogen +/- 1mg Bedside Urine Nitrite + Positive Bedside Urine Leukocytes +/- 15 Esterase On evaluation of patient's labs he does not appear to have significant leukocytosis, no significant anemia or thrombocytopenia. The patient's electrolytes were reviewed and did not show acute abnormalities requiring intervention, no signs of significant hyponatremia doubt that this is the cause of patient's symptoms. Patient's creatinine is not significantly elevated do not believe patient has IOANA or kidney failure as the cause. Lactate reassuring at 1.8. Imaging Data Chest x-ray: My Impression: No acute intrathoracic process Radiologist's Impression: No acute intrathoracic process no pneumonia ECG Data Attestation: I personally reviewed and interpreted this ECG as follows: Interpretation: Patient's EKG shows a normal sinus rhythm with a rate of 77, patient has large Q-waves in V2 V3 of undetermined chronicity, no significant ST elevation or depression that meets STEMI criteria, mild elevation in V2 3 4 however appears to be within limits of large wide negative to flexion and QRS. On previous comparison to EKG done on October patient appears to have similar morphology with large Q-waves. MDM Narrative Medical decision making narrative: INITIAL EVALUATION AND PLAN: - Differential diagnosis includes pneumonia, urinary tract infection, abnormal lab work, or new intracranial pathology. - Repeat CT scan to rule out new bleeding or stroke. - Monitor neurological status closely. - Consider further workup for infection, including chest X-ray and urinalysis. - Evaluate and manage any abnormal lab results. - Differential diagnosis includes but is not limited to: COVID, influenza, UTI, pneumonia, electrolyte abnormality, stroke, intracranial bleed Patient presents alert but unoriented, no acute pain or vital sign abnormalities, last known well before bed last night, woke up this morning and was off of his baseline per family in terms of the ability to complete activities of daily living no focal neurological deficits noted however on my exam or by family. -will obtain labs, imaging including CT head/CT angio of the head/neck, chest x- ray, UA -patient's CT of the head CT angio of the head and neck appeared to show improving midline shift, evidence of previous craniotomy, this imaging study was discussed with the neurosurgical team that did not believe the patient needs acute transfer to their facility they believe the symptoms are more in line with the urinary tract infection, they do not believe that symptoms makes sense for a medication side effect, they do recommend obtaining an MRI if patient does not have improving clinical status after treating a urinary tract infection. -patient ultimately admitted to the hospitalist for ongoing management of UTI, altered mental status. Discharge Plan Departure Prescriptions: No Action meclizine 25 mg tablet 25 mg PO QID PRN (Reason: dizziness) Qty: 20 0RF Referrals: True Case MD [Primary Care Provider] -
--- NOTE | 2025-01-20 10:37 | DI.CT.S_ITS ---
PROCEDURE: CT HEAD/BRAIN WO CON INDICATIONS: AMS TECHNIQUE: Noncontrast 4.5 mm thick angled axial sections acquired from the foramen magnum to the vertex, with coronal and sagittal reformats. For radiation dose reduction, the following was used: automated exposure control, adjustment of mA and/or kV according to patient size. COMPARISON: [facility], CT, CT STROKE, 11/02/2024, 14:56. [facility], CT, CT HEAD/BRAIN WO CON, 06/17/2019, 23:57. FINDINGS: Image quality: Diagnostic. Interval left craniotomy. Craniectomy craniotomy fluid collection along the left cerebral convexity measures 2.1 centimeters, which is homogeneous and hypoattenuating. Additional small fluid collection along the posterior margin of the left cerebral convexity measures 1.7 centimeters, decreased from prior. There is a left to right midline shift of 4 millimeters, decreased from prior, previously measuring 7 millimeters. Basal cisterns appear widely patent. No herniation. IMPRESSION: Interval left craniotomy, with decreased fluid collection overlying the left cerebral convexity. Decreased left midline shift, measuring 4 millimeters, previously 7 millimeters. No herniation. No hemorrhagic infarct. Dictated by: Harman Grant M.D. on 01/20/2025 at 12:14 Approved by: Harman Grant M.D. on 01/20/2025 at 12:19
[2025-01-20 10:50] LABS: Add Manual Diff / Slide Review NO; Basophils Absolute Auto 100 /uL (0-100); Basophils Percent Auto 0.7 % (0-2); Eosinophils Absolute Auto 0 /uL (0-450); Eosinophils Percent Auto 0.1 % (2-4); Hematocrit 39.3 % (41-53); Hemoglobin 12.9 g/dL (13.5-17.5); Lymphocytes Absolute Auto 1000 /uL (1100-4500); Lymphocytes Percent Auto 12.7 % (25-40); Mean Corpuscular HGB Conc 32.9 % (30-36); Mean Corpuscular Hemoglobin 27.9 PG (26-34); Mean Corpuscular Volume 84.9 fL (80-100); Monocytes Absolute Auto 900 /uL (0-900); Monocytes Percent Auto 10.9 % (3-14); Neutrophils Absolute Auto 6100 /uL (1500-7000); Neutrophils Percent Auto 75.6 % (50-75); Platelet Count 222 X10^3/uL (150-400); Red Blood Cell Count 4.63 X10^6/uL (4.5-5.9)
--- NOTE | 2025-01-20 10:51 | DI.CT.S_ITS ---
PROCEDURE: CT ANGIO HEAD AND NECK INDICATIONS: Altered mental status, stroke workup TECHNIQUE: After the administration of intravenous contrast, 1 mm thick sections acquired from the aortic arch through the [place] of [place]. 3-dimensional qfvevzh-ijpylgemu-msntcvfeht (MIP) and/or volume rendering reformats were acquired of the central intracranial vasculature and neck separately. For radiation dose reduction, the following was used: automated exposure control, adjustment of mA and/or kV according to patient size. COMPARISON: [facility], CT, CT ANGIO HEAD AND NECK, 11/02/2024, 14:56. FINDINGS: Image quality: Diagnostic. BRAIN: No significant change since same day CT. HEAD CT ANGIOGRAPHY: Anterior circulation: Intracranial internal carotid arteries are normal in size and flow. The flow within the paired anterior cerebral arteries is normal and symmetric. The flow within the middle cerebral arteries is normal and symmetric. The anterior communicating artery is seen. No aneurysms are seen. 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 Flow within the posterior cerebral arteries is normal and symmetric. No aneurysms are seen. NECK CT ANGIOGRAPHY: Carotid system: The great vessels demonstrate a conventional anatomy as they arise from the aortic arch. The origins of the common carotid arteries appear patent. The common carotid arteries demonstrate normal caliber and courses. The bifurcation regions are both widely patent. The internal carotid arteries demonstrate normal calibers and courses. Posterior circulation: The origins of the vertebral arteries both appear widely patent chronic occlusion of the left V3 and V4 segment of the vertebral artery. They join to form a normal appearing basilar artery. Soft tissues: Visualized neck soft tissues demonstrate no suspicious abnormalities. Bones: No suspicious bony lesions. Visualized cervical spine appears normally aligned. IMPRESSION: No significant intracranial arterial abnormality is seen. 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 Please see same day head CT for further discussion. Large left thyroid nodule. Consider outpatient thyroid ultrasound. Any quantitative measurements of stenosis were performed using NASCET criteria. Dictated by: Harman Grant M.D. on 01/20/2025 at 12:07 Approved by: Harman Grant M.D. on 01/20/2025 at 12:14
[2025-01-20 11:00] LABS: INR 1.2 (0.9-1.3); Prothrombin Time 13.3 SECONDS (9.4-12.5)
[2025-01-20 11:03] LABS: PTT Partial Thromboplastin Tim 29 SECONDS (25.1-36.5)
[2025-01-20 11:04] LABS: Lactate (Lactic Acid) 1.8 mmol/L (0.7-2.1)
[2025-01-20 11:05] LABS: Alanine Aminotransferase 22 IU/L (<50); Albumin 3.9 g/dL (3.5-5.0); Albumin Globulin Ratio 1.3 (1.0-2.8); Alkaline Phosphatase 93 U/L (38-126); Aspartate Aminotransferase 31 IU/L (17-59); Bilirubin Total 0.7 mg/dL (0.2-1.3); Blood Urea Nitrogen 15 mg/dL (9-20); Calcium 8.9 mg/dL (8.4-10.2); Carbon Dioxide 22 mmol/L (22-32); Chloride 109 mmol/L (98-107); Estimated Glomerular Filt Rate > 60 mL/min (>60); Globulin 3.1 g/dL (1.7-4.1); Glucose 94 mg/dL (80-110); HEMOLYSIS 45 (0-50); Lipase 26 U/L (23-300); Potassium 3.8 mmol/L (3.4-5.1); Sodium 140 mmol/L (137-145)
[2025-01-20 11:22] LABS: Procalcitonin 0.088 ng/mL (<0.5)
[2025-01-20 11:45] LABS: Troponin I 0.017 ng/mL (0.01-0.034)
[2025-01-20 12:41] LABS: Adenovirus Not Detected (Not Detect); B. parapertussis Not Detected (Not Detecte); Bordetella pertussis Not Detected (Not Detect); Chlamydophila pneumoniae Not Detected (Not Detect); Coronavirus 229E Not Detected (Not Detect); Coronavirus HKU1 Not Detected (Not Detect); Coronavirus NL 63 Not Detected (Not Detect); Coronavirus OC43 Not Detected (Not Detect); Human Metapneumovirus Not Detected (Not Detect); Human Rhinovirus/Enterovirus Not Detected (Not Detect); Influenza A Not Detected (Not Detect); Influenza B Not Detected (Not Detect); Mycoplasma pneumoniae Not Detected (Not Detect); Parainfluenza Virus 1 Not Detected (Not Detect); Parainfluenza Virus 2 Not Detected (Not Detect); Parainfluenza Virus 3 Not Detected (Not Detect); Parainfluenza Virus 4 Not Detected (Not Detect); Respiratory Syncytial Virus Not Detected (Not Detect); SARS- CoV-2 Not Detected (Not Detecte)
[2025-01-20 13:45] LABS: Bacteria Urine Moderate (10-30); Culture Indicated Urine Specimen Cultured; RBC Urine 1-5/HPF (0-5/HPF); Squamous Epithelial Cell Urine 0-1 /HPF (0-5/HPF); Urine Volume 10mL (spun); WBC Urine 10-30/HPF (0-5/HPF)
[2025-01-20] MEDS: cefTRIAXone 1,000 MG in SODIUM CHLORIDE 0.9% 100 ML 200 MG IV (15:25)
[2025-01-20] MEDS: SODIUM CHLORIDE 0.9% 1,000 ML 1000 ML IV (15:30)
--- NOTE | 2025-01-20 16:30 | PM.CALLCOV.1 ---
Call Coverage Note Note Narrative of Care Provided: I have seen and evaluated the patient. I am concerned about the possibility in this patient for a possible EXHIBITS MANAGER infection given his high fever of 105 that was reported and continued altered mentation, however this does not appear likely as he had no neck stiffness on exam nor focal deficits. In comparison to prior imaging CT appears relatively unchanged (though I am comparing reports as other imaging was done at OSH). While possible this is UTI it is not certainly clear. He also had waxing and waning mentation with transient encephalopathy noted at [facility] where workup with EEGs and consultation with neurology revealed no exact cause. I have included [facility] discharge documentation below for ease of transfer of infromation. I asked ER for review with [facility] given his complex prior admission and his previous care team there. While this patient may be encephalopathic due to UTI, the differential is broad and does include encephalopathy due to seizure medications, possible subclinical seizure, or seemingly less likely central infectious etiology like meningitis. Given his recent history, if need for LP if no improvement no proceduralists are available at [facility] over the weekend, there is also no availability for EEG or neurology. I discussed this with family at bedside. I have been informed [facility] did not recommend transfer, so if family is okay with these risks we can admit here for presumed metabolic encephalopathy with UTI. I discussed goals of care with family and they note the patient is full code at this time given his recent improvement, Full H&P or consultation to follow given above decision making. BRIEF ADMISSION HISTORY: From the H&P performed by Tasia Castaneda MD on 11/02/24 1200 am This is an 89-year-old man who has a history of a left cerebellar stroke in 2019, known left vertebral artery occlusion, on Plavix, history of heart failure, ejection fraction 40% with drug-eluting stent in 2005, who is presenting for a first time seizure at 1300 that lasted for 5 minutes. Was found to have a left sided subdural hematoma, 12 mm midline shift. He was transferred from [facility] for neurosurgical evaluation. The [place] when he had a 5 minute seizure, 5 minutes as reported by witnesses. The patient does not recall the events or the seizure. He also has noted some feeling of recurrent swelling over his eyes and he blacked out at that time right before the seizure. He has no history of alcohol use or substance use. He denies any headaches, weakness, numbness or tingling. He does report mild blurry vision. No other injuries. ? HOSPITAL COURSE: Drake Hickey is a 89yo M with h/o left cerebellar stroke in 2019, known left vertebral artery occlusion, on Plavix, history of heart failure, ejection fraction 40% with drug-eluting stent in 2004, who is presenting for a first time seizure at 1300 that lasted for 5 minutes. Was found to have a left sided subdural hematoma, 12 mm midline shift. Now s/p Left MMA Embolization and Left sided hematoma evacuation on 11/04. Code stroke called 11/04 for LUE drift and aphasia. CT done with stable post op blood products and continued left hemispheric cerebral edema. Left shoulder with pain and imaging ordered. EEG was negative for seizure and he was continued on keppra, later changed to VPA on 11/06. ? His hospital course was complicated by an episode of acute aphasia on 11/10/24 for which he was transferred to [facility]. A head CT was performed which showed an increase of the left subdural collection with increased mass effect, thought to be the probable etiology of his waxing and waning mental status/episodes of acute aphasia and neurological exam in the setting of cortical spreading depression. Upon review with family they made decision not to pursue operation/escalation of care. As such family advised to continue with outpatient therapies. Neurology was consulted for additional recommendations. Differential included seizure. No evidence of seizure on repeat EEG 11/11. He was noted to have hyperammonemia, possibly related to VPA for which levocarnitine was added. Brain MRI was performed on 11/12 which demonstrated subacute left frontal transcortical infarct in addition to his known chronic left cerebellar stroke On 11/15 patient experienced a repeat event of decreased responsiveness. Code stroke was called. His mental status quickly improved by time of arrival of neurology resident. Repeat CT scan did not indicate any significant change to his subdural fluid collection compared to previous imaging. Patient was placed again on cEEG which displayed mild generalized slowing but without specific findings. ? Prior to discharge, goals of care conversation held with family, decision made by family to change code status to DNR/DNI. ? Plan will be for staple removal at SNF on 11/18/24. Home HCTZ was discontinued to lower risk of developing hyponatremia / brain swelling in s/o of his subdural fluid collection. ? By problem: # Acute left SDH with midline shift - s/p L MMA embolization and L SDH evacuation 11/04/24 - head CT (11/10/24)- Increase size of left subdural collection with subsequent increased left mass effect; Non-op. Head CT 11/15 unchanged compared to MRI. - Brain MRI on 11/12/24- subacute Left frontal transcortical infarct as well as chronic left cerebellar infarct. - resume home Plavix 75mg daily. - continue seizure precautions - continue normotension;Na goal>=135, discontinued home HCTZ to lower risk for hypoNa+ - continue neuro check q4hrs and prn - continue delirium protocols with trazodone 50mg HS - prn Trazodone for agitation - continue PT/OT/ST eval & treat ? # Intermittent encephalopathy? # Acute Aphasia # Seizures Patient with several episodes of acute encephalopathy / acute aphasia and c/f seizures during hospital stay. Possibly d/t cortical spreading depression from his L SDH - Work up head CT 11/10 indicated progression of hemorrhage, but no evidence of seizures on cEEG - Brain MRI 11/12/24- with subacute Left frontal transcortical infarct as well as chronic left cerebellar infarct. - CTH on 11/15 without significant changes compared with MRI - No new seizures found on cEEG 11/10 or 11/16 - briefly on topiramate (11/11-11/15) changed back to valproate and levocarnitine per neuro recs, more easily titratable compared to topiramate and can be also used for cortical spreading depression management. Plan to remain on AEDs on discharge, can further discuss whether to continue with regimen at his outpatient neurology follow up - NSGY clinic follow up in 6 weeks for repeat imaging (approx 12/28/24) - appreciate neurology and PACKAGE DYEING MACHINE OPERATOR following ? #Left cerebellar stroke 2018 #Left vertebral artery occlusion s/p SUZANNE 2004 - Continue home Plavix 75 mg daily (restarted on 11/13/24) - No Aspirin given Hx stomach ulcers - Continue rosuvastatin 20 mg daily ? #Ischemic cardiomyopathy (LVEF 50% 07/2019) #CAD c/b STEMI s/p PCI LAD 2008 - Continue Plavix 75 mg daily. No ASA due to Hx stomach ulcers - Continue rosuvastatin 20 mg daily - Continue Amlodipine 5 mg daily, Carvedilol 6.25 mg BID (reduced dose d/t bradycardia) - Added losartan 100mg daily (equivalent to his home telmisartan) - Follow-up with outpatient cardiology ? #HTN - SBP in 140s to 150s - Continue Amlodipine and carvedilol as above - Losartan 100mg daily - d/c'd home HCTZ ? # Dysphagia - evaluated by PACKAGE DYEING MACHINE OPERATOR. - continue Regular diet with thin liquids when fully awake and alert ? #Hyperchloremic metabolic acidosis? - Could be related to topiramate, discontinued on 11/15 ? # Left thyroid nodule TSH normal, total T4 normal, total T3 very mildly low. Thyroid US mildly suspicious given size and heterogenous appearance. Patient and family report that he has had a previous biopsy of the thyroid in May 2024. They will work on obtaining results from that biopsy. No need in having a repeat biopsy while inpatient, and further evaluation can be deferred to the outpatient setting with his PCP. LAST CT 12/23 CT HEAD W/O CONTRAST ? CLINICAL INDICATION: GLF, head impact, SDH with 5 mm shift on CTH from OSH ? TECHNIQUE: 5 mm MDCT images from skull base to vertex without contrast. Patient age specific parameters were used for radiation exposure. ? COMPARISON: CT head 12/23/2024 0627 hours from an outside facility ? FINDINGS: MASS EFFECT & VENTRICLES: 0.5 cm rightward shift, stable in comparison to the outside study. Stable size of the ventricular system is symmetric lateral lateral ventricles. Effacement of the sulci overlying the left convexity as before. BRAIN: No acute infarct, hemorrhage or mass lesion is seen. Left cerebellar encephalomalacia in keeping with a chronic PICA infarct as before. VASCULAR: Cavernous carotids and vertebral vessels are normal. EXTRA-AXIAL: 1.8 cm essentially hypodense left subdural fluid collection which is containing some heterogeneous slightly hyperdense components more anteriorly likely suggestive of a more recent age of blood products, similar to the prior study. Again there is loculations and membranous calcifications in the subdural space. EXTRA-CRANIAL: Left frontal temporal craniotomy. Sinuses and mastoids are clear. Orbits are normal except for bilateral lens replacements. ? IMPRESSION Stable imaging findings of a left cerebral convexity predominantly chronic subdural fluid collection with loculations and calcified membranes with some presumed acute/subacute blood products.
--- NOTE | 2025-01-20 19:29 | PM.HP.1 ---
History of Present Illness History of Present Illness Date Patient Seen: 01/20/25 Time Patient Seen: 17:30 Chief complaint: High fever, sent ot be checked for infection Narrative: This is an 89-year-old male with a past medical history of cerebellar stroke in 2018, CAD with prior STEMI, and previous reduced ejection fraction with an EF of 45% previously though improved on recent echocardiogram, hypertension, and recent admission at the end of 2023 to [facility] with an acute left subdural hematoma where he had an embolization and subdural hematoma evacuation on November 04. He was at [facility] for approximately a month according to family, please see his previous discharge summary which is copied into my call coverage note for this information. In short, while he was there he had bouts of intermittent encephalopathy, with acute aphasia and seizures. He had no changes on his head CT with regard to his post evacuation fluid collection and midline shift, though a brain MRI done on 11/12 showed a subacute left frontal transcortical infarct indicative of a new stroke. He was on a variety of antiseizure medications with various side effects including his transient encephalopathy. Per the family he has been doing quite well, until yesterday evening when he became a bit more lethargic and confused, which continued this morning. Overnight he was measured at home to have a fever as high as 105, he was urged to come to the emergency room for further evaluation. With EMS family reports that his temperature was as high as 102?, though the patient has been afebrile since arrival in the emergency room. The remainder of his vitals are also unremarkable here. Laboratory evaluation did not show leukocytosis, normal coagulation studies, and a fairly unremarkable chemistry panel. Urinalysis was positive for 10-30 wbc's and moderate bacteria which was reflex for culture. Blood cultures were also obtained. Respiratory panel was negative for any infection. The patient continues to be confused from his baseline according to family at bedside. Given his recent complex admission with waxing and waning mentation I asked the ER to discuss possible transfer to [facility], which they did not feel was necessary at this time. Family was agreeable for admission to [facility] for treatment of presumptive acute encephalopathy due to acute cystitis with a broad differential. He was admitted to medicine service for further management. [facility] Medical History (Updated 11/17/24 @ 00:00 by ) Stroke Hypertension Coronary artery disease Surgical History S/P angioplasty with stent Social History Smoking Status: Current every day smoker Meds Home Medications and Allergies Home Medications Medication Instructions Recorded Confirmed Type meclizine 25 mg tablet 25 mg PO QID PRN dizziness #20 tabs 06/18/19 Rx Allergies Allergy/AdvReac Type Severity Reaction Status Date / Time No Known Drug Allergies Allergy Verified 05/31/23 18:26 Review of Systems Review of Systems Narrative: All other systems reviewed with the patient and are negative unless otherwise stated. Exam Vital Signs (past 8 hours): - 01/20/25 11:54 01/20/25 11:54 01/20/25 12:00 Pulse Rate 97 H 90 Respiratory Rate 22 27 H Blood Pressure 133/72 Pulse Oximetry 98 97 Oxygen Delivery Method 01/20/25 12:05 01/20/25 12:05 01/20/25 12:30 Pulse Rate 83 Respiratory Rate 23 Blood Pressure 150/74 H 149/70 H Pulse Oximetry 100 Oxygen Delivery Method 01/20/25 12:30 01/20/25 12:30 01/20/25 13:00 Pulse Rate 82 82 Respiratory Rate 17 14 Blood Pressure 149/70 H Pulse Oximetry 99 99 Oxygen Delivery Method 01/20/25 13:00 01/20/25 13:30 01/20/25 13:31 Pulse Rate 80 88 Respiratory Rate 21 29 H Blood Pressure 144/67 H Pulse Oximetry Oxygen Delivery Method 01/20/25 13:31 01/20/25 14:00 01/20/25 14:00 Pulse Rate 82 Respiratory Rate 26 H Blood Pressure 132/73 147/67 H Pulse Oximetry 99 Oxygen Delivery Method 01/20/25 14:30 01/20/25 14:30 01/20/25 15:00 Pulse Rate 87 Respiratory Rate 25 H Blood Pressure 127/70 134/68 Pulse Oximetry Oxygen Delivery Method 01/20/25 15:00 01/20/25 15:30 01/20/25 15:30 Pulse Rate 80 80 Respiratory Rate 20 22 Blood Pressure 129/65 Pulse Oximetry 100 100 Oxygen Delivery Method 01/20/25 16:00 01/20/25 16:00 01/20/25 16:30 Pulse Rate 86 87 Respiratory Rate 20 20 Blood Pressure 139/65 Pulse Oximetry 96 96 Oxygen Delivery Method 01/20/25 16:30 01/20/25 17:00 01/20/25 17:00 Pulse Rate 87 Respiratory Rate 24 Blood Pressure 136/65 143/72 H Pulse Oximetry 96 Oxygen Delivery Method 01/20/25 17:30 01/20/25 17:30 Pulse Rate 87 Respiratory Rate 22 Blood Pressure 143/68 H Pulse Oximetry 96 Oxygen Delivery Method Room Air Oxygen Delivery Method Room Air Narrative Exam Narrative: Gen: ill appearing elderly male, oriented to name and hospital, slurred speech (baseline per family) HEENT: dry MM Neck: No neck stiffness or pain. CV: RRR no m/r/g Pulm: CTA b/l Abd S NT ND Extremities: no edema, no rash or bruising. Objective ECG Impression: Normal sinus rhythm, left axis deviation, no evidence of acute ischemia Labs 01/20/25 10:40 01/20/25 10:40 Labs: Laboratory Results - last 24 hr 01/20/25 01/20/25 01/20/25 10:40 10:48 13:10 WBC 8.0 RBC 4.63 Hgb 12.9 L Hct 39.3 L MCV 84.9 MCH 27.9 MCHC 32.9 RDW 18.0 H Plt Count 222 Neut % (Auto) 75.6 H Lymph % (Auto) 12.7 L Dawson % (Auto) 10.9 Eos % (Auto) 0.1 L Baso % (Auto) 0.7 Neut # (Auto) 6100 Lymph # (Auto) 1000 L Dawson # (Auto) 900 Eos # (Auto) 0 Baso # (Auto) 100 PT 13.3 H INR 1.2 APTT 29 Sodium 140 Potassium 3.8 Chloride 109 H Carbon Dioxide 22 BUN 15 Creatinine 0.94 Estimated GFR > 60 BUN/Creatinine Ratio 16.0 Glucose 94 Lactate 1.8 Calcium 8.9 Total Bilirubin 0.7 AST 31 ALT 22 Alkaline Phosphatase 93 Troponin I 0.017 Total Protein 7.0 Albumin 3.9 Globulin 3.1 Albumin/Globulin Ratio 1.3 Lipase 26 Procalcitonin 0.088 Urine RBC 1-5/hpf Urine WBC 10-30/hpf H Ur Squamous Epith Cells 0-1 /hpf Urine Bacteria Moderate (10-30) H Ur Culture Indicated? Specimen cultured Vol Urine Centrifuged 10ml (spun) Chlamy pneumoniae PCR Not detected Adenovirus (PCR) Not detected B. pertussis DNA (PCR) Not detected B.parapertussis DNA PCR Not detected Coronavirus OC43 (PCR) Not detected Coronavirus HKU1 (PCR) Not detected Coronavirus 229E (PCR) Not detected SARS-CoV-2 (PCR) Not detected Coronavirus NL63 (PCR) Not detected Human Metapneumovir PCR Not detected Influenza Type A (PCR) Not detected Influenza Type B (PCR) Not detected M. pneumoniae (PCR) Not detected Parainfluenza 1 (PCR) Not detected Parainfluenza 2 (PCR) Not detected Parainfluenza 3 (PCR) Not detected Parainfluenza 4 (PCR) Not detected RSV (PCR) Not detected Entero/Rhino (PCR) Not detected Assessment & Plan Assessment & Plan narrative: 1. Acute metabolic encephalopathy, most likely due to acute cystitis - continue ceftriaxone 1 g q24 hr, follow up urine cultures. - if no improvement [facility] recommended MRI per ER provider. Did not recommend transfer. - if worsened mentation, neck stiffness, or worsening consider transfer for LP. If seizures develop recommend transfer for neurology, LP, etc. - will check ammonia level as was previously elevated due to seizure medications at [facility] as well, treated with L carnitine per discharge summary 2. Recent L MMA embolization and L SDH evacutation - appears stable when comparing sizing from [facility] and CT scan today. No obvious new focal deficits on exam or per family today. 3. History of seizures and intermittent encephalopathy (at [facility]) - continue home seizure medications - check ammonia level as noted above 4. Hx of CVA - - Continue home Plavix 75 mg daily (restarted on 11/13/24) - No Aspirin given Hx stomach ulcers - Continue rosuvastatin 20 mg daily 5. CAD, Ischemic cardiomyopathy with hx HFrEF, now improved - continue plavix and statin as above 6. HTN - Continue Amlodipine and carvedilol as above - Losartan 100mg daily 7. Hx dysphagia - at [facility] was on regular diet with thin liquids while alert. Code: Full, surrogate is patient's spouse DVT: Lovenox daily I have utilized all available immediate resources to obtain, update, or review the patient's current medications. Dispo: patient admitted under inpatient status. Unclear if will be able to discharge home or possible SNF, will likely need PT/OT evauations prior to discharge though depends on his progress. Additional history obtained via discussions with the ER provider, discussion with family (spouse), and extensive review of outside hospital records. These discussions contributed to the creation of the above assessment and plan. I have reviewed patient's presenting documentation, labs, and imaging personally. Time-Based Coding :: [TOTAL MINUTES] spent with patient and on the chart (including review of chart, obtaining history, exam, reviewing outside data, placing orders, documenting exam and treatment plan, and counseling patient) on [DATE].
--- NOTE | 2025-01-20 20:14 | PM.PN.1 ---
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 Patient reports he is feeling better today than he did on admission. His knows when he was up to the bedside commode he was very shaky, which is definitely worse than baseline. She notes he over the past 2 days has had a significant regression with his overall progress since his subdural hematoma. His appetite remains low. He denies any urinary symptoms. His notes he did have large volume incontinence leading up to his admission Exam Vital Signs (past 8 hours): - 01/20/25 12:30 01/20/25 12:30 01/20/25 12:30 Pulse Rate 82 Respiratory Rate 17 Blood Pressure 149/70 H 149/70 H Pulse Oximetry 99 Oxygen Delivery Method 01/20/25 13:00 01/20/25 13:00 01/20/25 13:30 Pulse Rate 82 80 Respiratory Rate 14 21 Blood Pressure 144/67 H Pulse Oximetry 99 Oxygen Delivery Method 01/20/25 13:31 01/20/25 13:31 01/20/25 14:00 Pulse Rate 88 Respiratory Rate 29 H Blood Pressure 132/73 147/67 H Pulse Oximetry Oxygen Delivery Method 01/20/25 14:00 01/20/25 14:30 01/20/25 14:30 Pulse Rate 82 87 Respiratory Rate 26 H 25 H Blood Pressure 127/70 Pulse Oximetry 99 Oxygen Delivery Method 01/20/25 15:00 01/20/25 15:00 01/20/25 15:30 Pulse Rate 80 80 Respiratory Rate 20 22 Blood Pressure 134/68 Pulse Oximetry 100 100 Oxygen Delivery Method 01/20/25 15:30 01/20/25 16:00 01/20/25 16:00 Pulse Rate 86 Respiratory Rate 20 Blood Pressure 129/65 139/65 Pulse Oximetry 96 Oxygen Delivery Method 01/20/25 16:30 01/20/25 16:30 01/20/25 17:00 Pulse Rate 87 87 Respiratory Rate 20 24 Blood Pressure 136/65 Pulse Oximetry 96 96 Oxygen Delivery Method 01/20/25 17:00 01/20/25 17:30 01/20/25 17:30 Pulse Rate 87 Respiratory Rate 22 Blood Pressure 143/72 H 143/68 H Pulse Oximetry 96 Oxygen Delivery Method Room Air Oxygen Delivery Method Room Air Narrative Exam Narrative: GEN: Pleasant elderly male, sitting up in a chair, Alert and oriented x 3, NAD HEENT:NC, Face symmetric CHEST: Respiratory excursions symmetric, CTAB CV: RRR, no M/R/G ABD: Soft, tender in the suprapubic area/ND, BT present in all 4 quadrants, no organomegaly or masses EXTR: warm, well perfused, no C/C/E SKIN: warm and dry, no rash NEURO: Alert and oriented x 3, nonfocal Objective Labs 01/21/25 08:35 01/21/25 08:35 Labs: Laboratory Results - last 24 hr 01/20/25 01/20/25 01/20/25 10:40 10:48 13:10 WBC 8.0 RBC 4.63 Hgb 12.9 L Hct 39.3 L MCV 84.9 MCH 27.9 MCHC 32.9 RDW 18.0 H Plt Count 222 Neut % (Auto) 75.6 H Lymph % (Auto) 12.7 L [place] % (Auto) 10.9 Eos % (Auto) 0.1 L Baso % (Auto) 0.7 Neut # (Auto) 6100 Lymph # (Auto) 1000 L [place] # (Auto) 900 Eos # (Auto) 0 Baso # (Auto) 100 PT 13.3 H INR 1.2 APTT 29 Sodium 140 Potassium 3.8 Chloride 109 H Carbon Dioxide 22 BUN 15 Creatinine 0.94 Estimated GFR > 60 BUN/Creatinine Ratio 16.0 Glucose 94 Lactate 1.8 Calcium 8.9 Total Bilirubin 0.7 AST 31 ALT 22 Alkaline Phosphatase 93 Troponin I 0.017 Total Protein 7.0 Albumin 3.9 Globulin 3.1 Albumin/Globulin Ratio 1.3 Lipase 26 Procalcitonin 0.088 Urine RBC 1-5/hpf Urine WBC 10-30/hpf H Ur Squamous Epith Cells 0-1 /hpf Urine Bacteria Moderate (10-30) H Ur Culture Indicated? Specimen cultured Vol Urine Centrifuged 10ml (spun) Chlamy pneumoniae PCR Not detected Adenovirus (PCR) Not detected B. pertussis DNA (PCR) Not detected B.parapertussis DNA PCR Not detected Coronavirus OC43 (PCR) Not detected Coronavirus HKU1 (PCR) Not detected Coronavirus 229E (PCR) Not detected SARS-CoV-2 (PCR) Not detected Coronavirus NL63 (PCR) Not detected Human Metapneumovir PCR Not detected Influenza Type A (PCR) Not detected Influenza Type B (PCR) Not detected M. pneumoniae (PCR) Not detected Parainfluenza 1 (PCR) Not detected Parainfluenza 2 (PCR) Not detected Parainfluenza 3 (PCR) Not detected Parainfluenza 4 (PCR) Not detected RSV (PCR) Not detected Entero/Rhino (PCR) Not detected [facility] Medical History (Updated 01/20/25 @ 22:02 by Tavia Mejia RN) Stroke Hypertension Coronary artery disease Surgical History S/P angioplasty with stent Social History household members: spouse, family and friend(s) Smoking Status: Former smoker Assessment & Plan Assessment & Plan narrative: 1. Possible UTI Await cx results, preliminarily Gram-negative rods are growing. Continues empiric rocephin. 2. Acute febrile illness Blood and urine cxs pending. WBC count wnl. Continues empiric rocephin. 3. Acute metabolic encephalopathy Likely multifactorial from acute illness and recent SDH/prolonged hospitalization/seizures/critical illness. Slowly improving. 4. Recent SDH requring MMA embolization and SDH evaculation CT last night showed improved midline shift and no new SDH. 5. CAD Stable and asymptomatic. 6. Ischemic CM No cardiac symptoms at this time. 7. HTN Blood pressures are normotensive. 8. Thyroid nodule Will need outpatient dedicated thyroid US Code status Full Prophy On Lovenox Dispo Pending. Suspect he will need renewed home health PT and OT. Await assessments here. Time-Based Coding :: [TOTAL MINUTES] spent with patient and on the chart (including review of chart, obtaining history, exam, reviewing outside data, placing orders, documenting exam and treatment plan, and counseling patient) on [DATE].
--- NOTE | 2025-01-20 20:50 | PC.NURSE ---
Report called to Diana ARECHIGA
[2025-01-20] MEDS: SODIUM CHLORIDE 0.9% 1,000 ML 100 ML IV (23:15)
[2025-01-20] MEDS: DIVALPROEX DR 250 MG TABLET 500 MG PO (23:16)
[2025-01-20] MEDS: ATORVASTATIN 20 MG TABLET 40 MG PO (23:16)
[2025-01-20] MEDS: MELATONIN 3 MG TABLET PO (23:16)
[2025-01-20] MEDS: LEVOCARNITINE 330 MG 990 EACH PO (23:45)
[2025-01-21] VITALS (12 sets, daily range): BP systolic 106–146; BP diastolic 36–75; PULSE 60–68; RESP 14–20; TEMP 36.5–36.9; O2SAT 97–99
[2025-01-21 08:44] LABS: Add Manual Diff / Slide Review NO; Basophils Absolute Auto 100 /uL (0-100); Basophils Percent Auto 1.1 % (0-2); Eosinophils Absolute Auto 0 /uL (0-450); Eosinophils Percent Auto 0.1 % (2-4); Hematocrit 36.4 % (41-53); Hemoglobin 11.8 g/dL (13.5-17.5); Lymphocytes Absolute Auto 800 /uL (1100-4500); Lymphocytes Percent Auto 12.2 % (25-40); Mean Corpuscular HGB Conc 32.6 % (30-36); Mean Corpuscular Hemoglobin 27.7 PG (26-34); Mean Corpuscular Volume 85.1 fL (80-100); Monocytes Absolute Auto 600 /uL (0-900); Monocytes Percent Auto 9.4 % (3-14); Neutrophils Absolute Auto 5100 /uL (1500-7000); Neutrophils Percent Auto 77.2 % (50-75); Platelet Count 187 X10^3/uL (150-400); Red Blood Cell Count 4.28 X10^6/uL (4.5-5.9); Red Cell Distribution Width 18.1 % (11.6-14.8); White Blood Cell Count 6.6 X10^3/uL (4.5-11.0)
[2025-01-21 08:54] LABS: Hemoglobin A1C% w Est Avg Glu < 4.0 % (4.0-6.0)
[2025-01-21 08:58] LABS: Ammonia (NH3) 18 umol/L (9-30)
[2025-01-21 09:00] LABS: Alanine Aminotransferase 24 IU/L (<50); Albumin 3.3 g/dL (3.5-5.0); Albumin Globulin Ratio 1.3 (1.0-2.8); Alkaline Phosphatase 77 U/L (38-126); Aspartate Aminotransferase 37 IU/L (17-59); BUN Creatinine Ratio 18.8 (6-22); Bilirubin Total 0.7 mg/dL (0.2-1.3); Blood Urea Nitrogen 16 mg/dL (9-20); Calcium 8.5 mg/dL (8.4-10.2); Carbon Dioxide 21 mmol/L (22-32); Chloride 111 mmol/L (98-107); Estimated Glomerular Filt Rate > 60 mL/min (>60); Globulin 2.6 g/dL (1.7-4.1); Glucose 91 mg/dL (80-110); HEMOLYSIS 35 (0-50); Magnesium 1.9 mg/dL (1.6-2.3); Potassium 3.9 mmol/L (3.4-5.1); Sodium 140 mmol/L (137-145); Total Protein 5.9 g/dL (6.3-8.2)
[2025-01-21] MEDS: SODIUM CHLORIDE 0.9% 1,000 ML 100 ML IV ×2 (09:44→19:29)
[2025-01-21] MEDS: carvediloL 12.5 MG TABLET PO ×2 (09:57→21:08)
[2025-01-21] MEDS: CLOPIDOGREL 75 MG TABLET PO (09:58)
[2025-01-21] MEDS: ENOXAPARIN 40 MG/0.4 ML SYRINGE SUBCUT (09:58)
[2025-01-21] MEDS: AMLODIPINE 5 MG TABLET 10 MG PO (09:58)
[2025-01-21] MEDS: ATORVASTATIN 20 MG TABLET 40 MG PO ×2 (09:59→21:07)
[2025-01-21] MEDS: DIVALPROEX DR 250 MG TABLET 500 MG PO ×2 (09:59→21:07)
[2025-01-21] MEDS: LEVOCARNITINE 330 MG 990 EACH PO ×2 (10:00→21:08)
--- NOTE | 2025-01-21 13:49 | PC.NURSE ---
Pt is alert, verbal to a degree, able to make needs known, a little more conversant throughout the day. Family attentive at bedside. Pt tolerated being in recliner well. Toya activity. Follows commands. Resettle to bed.
--- NOTE | 2025-01-21 13:56 | PT.IIE ---
Current Diagnoses Acute cystitis without hematuria (01/20/25) Surgical History (Last Reviewed 04/25/24 @ 00:58 by Nadiya Murry DO) S/P angioplasty with stent Medical History (Last Updated 11/02/24 @ 15:16 by Anita Villalpando MD) Coronary artery disease Hypertension Stroke Physical Therapy Inpatient Evaluation/Re-Eval M1 PT/OT-IP Prior Functional Status Start: 01/21/25 14:37 Freq: NEEDED Status: Active Protocol: Document 01/21/25 13:56 AB (Rec: 01/21/25 14:53 AB [id number]) Medical Review Prior Functional Status Medical History Reviewed Yes Communication able to make needs known; with slight confusion and difficuly following directions Mobility and Gait spouse provided pt's PLOF and home set up: stated that pt is was able get out of the bed, ambulates using FWW but they keep an eye on the pt and if pt needs assistance, they assist pt Activities of Daily Living and IADL's pt needs assist with medications. has a bath aide that comes in to assist with showers. Prior Functional Level (Other details) h/o falls Social History Household Members spouse,family Living Arrangements House Number of Floors (Floors) Two Floors Number of Stairs To Enter/Railing? pt stays on main level of the house has 7 steps to enter with bilateral wide rails and can only hold on to 1 rail at a time: family holds on to pt with stairs for safety Home Environment Standard Height Toilet,Tub/ Shower Home Equipment Front Wheel Walker,Shower Seat without Backrest,Hand Held Shower,Grab Bars Near Toilet, Grab Bars In Shower Additional Social History Comment pt lives with his spouse. son and DIL. pt has a R side bed rail M2 PT-IP Current Condition Start: 01/21/25 14:37 Freq: NEEDED Status: Active Protocol: Document 01/21/25 13:56 AB (Rec: 01/21/25 14:53 AB [id number]) Physical Therapy Current Condition Current Condition Evaluation Date 01/21/25 Treatment Diagnosis UTI; difficulty in walking Onset Date 01/20/25 M3 PT-IP Subjective Start: 01/21/25 14:37 Freq: NEEDED Status: Active Protocol: Document 01/21/25 13:56 AB (Rec: 01/21/25 14:53 AB [id number]) Subjective Physical Therapy Visit Type Type Initial Evaluation Visit Start Time 13:56 Visit Stop Time 14:35 Number of IRON CARRIER Visits 0 Physical Therapy Visit Comments Patient Comments requesting to use the toilet M4 PT-IP Mobility and Gait Start: 01/21/25 14:37 Freq: NEEDED Status: Active Protocol: Document 01/21/25 13:56 AB (Rec: 01/21/25 14:53 AB [id number]) PT-Bed Mobility Assessment Supine to Sit Supine to Sit Standby Assistance,Head of Bed Elevated,Bedrails Sit to Supine Sit to Supine Standby Assistance,Head of Bed Elevated,Bedrails PT-Transfer Assessment Sit to and From Stand Sit to and from Stand Minimal Assistance,1 Person Assistance,Use of Upper Extremities Equipment Transfer Assistive Device Gait Belt,Front Wheeled Walker Orthotic/Prosthetic Devices or Brace: No Comments Mobility Comments pt in bed and family in room. pt was going to get up and requesting to use the toilet. supine to sit SBA. pt stated that he prefers to use the urinal for now. sit to stand min A and nurse assisted pt with urinal. pt requiring min A for standing balance using FWW for support. pt sat back on EOB. obtained PLOF and home set up from spouse. pt with slow responses and unsure of answers. pt agreed to get up and walk. sit to stand min A and ambulated using FWW ~ 20 ft needing min A initially but requiring mod A towards end of ambulation with increase unsteadiness and slightly impulsive. min A for controlled descent to EOB. pt requested to go back back to bed. sit to supine SBA. positioned pt on the bed. call light and table placed within reach. Gait Assessment Gait Gait Assistance Required: Minimum Assistance,Moderate Assistance,1 Person Assist Distance (Feet) 20 Able to Maintain Weight Bearing Status Yes During Gait Assistive Devices Assistive Device Gait Belt,Front Wheeled Walker Orthotic/Prosthetic Devices or Brace: No Gait Deviations General Gait Pattern Ataxic,Decreased Stride Length ,Decreased Feet Clearance Factors Limiting Gait Function Factors Limiting Gait Function Decreased Activity Tolerance, Decreased Strength,Difficulty Following Directions,Poor Balance,Poor Safety Awareness PT-Balance Assessment Sitting Balance and Reactions Static Sitting Balance Ability Good Dynamic Sitting Balance Ability Good Standing Balance and Reactions Static Standing Balance Ability Fair Dynamic Standing Balance Ability Fair Device Used FWW M5 PT-IP Objective Assessments Start: 01/21/25 14:37 Freq: NEEDED Status: Active Protocol: Document 01/21/25 13:56 AB (Rec: 01/21/25 14:53 AB [id number]) Orientation Orientation/Cognition Level of Alertness Alert Orientation Name Safety Awareness Decreased Safety Awareness Memory Description Short Term Impaired,Insurance Agents Supervisor Impaired Comments with slight confusion Gross Range of Motion Lower Extremity ROM Assessment Within Functional Limits Strength Lower Extremity Strength Hip 4-/5 Knee 4-/5 Comments Strength Comments per family: pt has R rotator cuff tear Muscle Tone Muscle Tone WNL Yes M6 PT-IP Treatment Start: 01/21/25 14:37 Freq: NEEDED Status: Active Protocol: Document 01/21/25 13:56 AB (Rec: 01/21/25 14:53 AB [id number]) Physical Therapy Treatment Education Education Provided Safety M7 PT-IP Assessment and Plan Start: 01/21/25 14:37 Freq: NEEDED Status: Active Protocol: Document 01/21/25 13:56 AB (Rec: 01/21/25 14:53 AB [id number]) PT Summary Assessment and Plan Potential Rehabilitation Potential Fair Status of Condition at Evaluation Evolving Summary Impairments Pain,ROM,Strength,Balance, Coordination,Sensation,Tone, Cognition,Bed Mobility, Transfers,Gait,Activity Tolerance Assessment Summary pt is an 89 y/o M who is admitted for acute metabolic encephalopathy, UTI. pt with h/o fall sustaining a L subdural hematoma and underwent craniotomy with L SDH evacuation 11/04/24. pt also has h/o CVA contributing to current mobility level. pt requiring SBA for bed mobility, sit to stand min A and ambulation min to mod A and cues. pt with decrease activity tolerance and with slight confusion requiring max cues and repeated instructions. Family stated that they can provide 24/7 assist to pt. pt also has HHPT set up. Goals Bed Mobility Goal Independent Transfer Goal Standby Assistance,Front Wheeled Walker Gait Goal Standby Assistance,Front Wheel Walker Gait Distance 150 Other Goals up/down 7 steps 1 rail SBA Days to Meet Goals 10 Frequency of Treatment Frequency Of Treatment Once a Day Treatment Plan Physical Therapy Treatment Plan Bed Mobility Training,Transfer Training,Gait Training, Therapeutic Exercise,Balance Retraining,Discharge Planning, Hot or Cold Pack,Neuromuscular Re-ed,Coordination Retraining ,Manual Therapy Precautions Other Precautions falls Recommendations To Nursing Amount of Assist Needed 1 Person Assist Discharge Recommendations PT Discharge Recommendations Home with 22/06 Assist Available,Home Health Transportation Needs at Discharge Private Vehicle,Wheelchair/ Cabulance
--- NOTE | 2025-01-21 14:38 | CM.DANOTE ---
Patient is an 89 male who was admitted INPT Status on 01/20/25 for Acute Encephalopathy and Cystitis. Pt has [employer] and [email or web address] for insurance and his PCP is [facility]. EMR was reviewed. Per MD, pt with hx of CVA and EF 45% and was at [facility] for about a month in Oct 2024 with new CVA and seizures and pt admitted for tx of encephalopathy and Cystitis. PT/OT ordered and pending. SW met bedside with pt and spouse and son and DIL and explained role and they confirm they all live together in [place] and pt had improved to where he was mostly independent with ADLs and was using a FWW for ambulation. Pt's spouse is his POA and then son and DIL Nelly ([phone]). Pt went from [facility] to [facility] rehab before going home with [facility] and pt was just ending his HH services as he had made good progress. Family is working with [facility] SW and provider to get pt's 80% service connection increased to 100% and also have [facility] scheduled for a home assessment to set up in-home CG assist paid for through the CT. This is scheduled for this coming week. Family currently feels that pt would be able to safely be managed at home and would like new orders for ongoing [facility] while they are setting up the [facility] caregivers for ongoing assist. Family would like to avoid SNF if possible. SW secure emailed [facility] and sent updated clincals to review and new F2F completed in anticipation of home with [facility] at d/c. PEr RN, pt has been up to the bedside chair most of the morning and has been able to ambulate with FWW in room. Plan: SW to follow for PT eval to confirm safe plan of home with family and ongoing [facility] when medically stable and any further identified discharge planning needs. DACIA Brown Discharge Planning/Care Management CM Discharge Assessment Start: 01/21/25 14:29 Freq: Status: Active Protocol: Document 01/21/25 14:30 BF (Rec: 01/21/25 14:32 BF [id number]) Discharge Planning Assessment Assigned Combination Machine Tool Setter DACIA Prakash DPOA/Assigned Designee Name spouse Amrita Contact Information [phone] Advance Directives? No Advance Directives on File No History Provided By Patient,Family Member,Medical Record Has Patient been admitted in last 30 No days? Prior Living Arrangements House Household Members spouse,family,friend(s) Comment Lives with spouse and son and DIL Type of transporation used prior to Relies on Others admit Independent with ADL's Yes: mostly Is patient alert and oriented? Yes: currently a little confused Needs Assistance With Meal Prep,Managing Medications ,Home Chores / Shopping Caregiver for Another No Community Services used prior to Physical Therapy,Home Health admission: Nurse Comment Open with [facility] DME Already Rented / Owned FWW / Walker Patient/Family Preference Home with Home Health Barriers to Discharge No Discharge Plan Home with Home Health Community Services Physical Therapy,Occupational Therapy,Home Health Aid,Home Health Nurse Transportation Arrangement Family plans to transport Referrals Initiated Home Health Additional Comment Sent updated clinicals and working on new orders for [facility] If patient plan is home with home health Yes : Has signed face to face form been completed? Medicare Choice List Provided Yes Medicare choice list reviewed on patient,family electronic tablet with SNF/HH Preference Resume [facility] Whiteboard Updated in Patient Room with Yes name and ext. # of Combination Machine Tool Setter Review Status In Process Please Provide Date Initial DC 01/21/25 Assessment Was Performed Next Review Type Continued Stay Review
[2025-01-21] MEDS: cefTRIAXone 1,000 MG in SODIUM CHLORIDE 0.9% 100 ML 200 MG IV (15:04)
[2025-01-21] MEDS: MELATONIN 3 MG TABLET PO (21:08)
[2025-01-22] VITALS (7 sets, daily range): BP systolic 134–152; BP diastolic 64–88; PULSE 54–68; RESP 15–20; TEMP 36.2–36.9; O2SAT 97–100
[2025-01-22] MEDS: SODIUM CHLORIDE 0.9% 1,000 ML 100 ML IV ×2 (05:34→15:39)
[2025-01-22 05:54] LABS: Add Manual Diff / Slide Review NO; Basophils Absolute Auto 100 /uL (0-100); Basophils Percent Auto 1.1 % (0-2); Eosinophils Absolute Auto 0 /uL (0-450); Eosinophils Percent Auto 0.6 % (2-4); Hematocrit 31.7 % (41-53); Hemoglobin 10.6 g/dL (13.5-17.5); Lymphocytes Absolute Auto 900 /uL (1100-4500); Mean Corpuscular HGB Conc 33.5 % (30-36); Mean Corpuscular Volume 83.6 fL (80-100); Monocytes Absolute Auto 500 /uL (0-900); Monocytes Percent Auto 10.5 % (3-14); Neutrophils Absolute Auto 3300 /uL (1500-7000); Neutrophils Percent Auto 69.8 % (50-75); Platelet Count 147 X10^3/uL (150-400); Red Blood Cell Count 3.79 X10^6/uL (4.5-5.9); Red Cell Distribution Width 17.7 % (11.6-14.8); White Blood Cell Count 4.8 X10^3/uL (4.5-11.0)
[2025-01-22 06:18] LABS: Blood Urea Nitrogen 18 mg/dL (9-20); Calcium 7.8 mg/dL (8.4-10.2); Carbon Dioxide 22 mmol/L (22-32); Chloride 112 mmol/L (98-107); Estimated Glomerular Filt Rate > 60 mL/min (>60); Glucose 92 mg/dL (80-110); HEMOLYSIS < 15 (0-50); Potassium 3.4 mmol/L (3.4-5.1); Sodium 139 mmol/L (137-145)
[2025-01-22] MEDS: PANTOPRAZOLE DR 20 MG TABLET PO ×2 (08:10→20:36)
[2025-01-22] MEDS: DIVALPROEX DR 250 MG TABLET 500 MG PO ×2 (09:51→20:35)
[2025-01-22] MEDS: LEVOCARNITINE 330 MG 990 EACH PO ×2 (09:51→20:34)
[2025-01-22] MEDS: carvediloL 12.5 MG TABLET PO ×2 (09:52→20:35)
[2025-01-22] MEDS: CLOPIDOGREL 75 MG TABLET PO (09:52)
[2025-01-22] MEDS: ATORVASTATIN 20 MG TABLET 40 MG PO ×2 (09:52)
[2025-01-22] MEDS: AMLODIPINE 5 MG TABLET 10 MG PO (09:52)
[2025-01-22] MEDS: ENOXAPARIN 40 MG/0.4 ML SYRINGE SUBCUT (09:53)
--- NOTE | 2025-01-22 11:29 | PT.IPTN ---
Current Diagnoses Acute cystitis without hematuria (01/20/25) Physical Therapy Treatment Note M2 PT-IP Current Condition Start: 01/21/25 14:37 Freq: NEEDED Status: Active Protocol: Document 01/21/25 13:56 AB (Rec: 01/21/25 14:53 AB [id number]) Physical Therapy Current Condition Current Condition Evaluation Date 01/21/25 Treatment Diagnosis UTI; difficulty in walking Onset Date 01/20/25 M3 PT-IP Subjective Start: 01/21/25 14:37 Freq: NEEDED Status: Active Protocol: Document 01/22/25 11:02 MB (Rec: 01/22/25 11:29 MB [id number]) Subjective Physical Therapy Visit Type Type Treatment Note Visit Start Time 11:02 Visit Stop Time 11:20 Number of DIESEL POWERPLANT MECHANIC Visits 0 Physical Therapy Visit Comments Patient Comments Pt's speech is garbled and he answers some yes and no questions but otherwise is hypoverbal and does not communicate much or well. Therapy Pain Assessment Pain When Pain Assessed At Rest Pain Present Pain Present Denied Pain M4 PT-IP Mobility and Gait Start: 01/21/25 14:37 Freq: NEEDED Status: Active Protocol: Document 01/22/25 11:02 MB (Rec: 01/22/25 11:29 MB [id number]) PT-Bed Mobility Assessment Rolling Type of Rolling Roll to Right Level of Assist Standby Assistance Supine to Sit Supine to Sit Standby Assistance,Bedrails Scooting Scooting to Edge of Bed Standby Assistance PT-Transfer Assessment Sit to and From Stand Sit to and from Stand Contact Guard Assistance, Minimal Assistance,1 Person Assistance,Use of Upper Extremities Equipment Transfer Assistive Device Gait Belt,Front Wheeled Walker Orthotic/Prosthetic Devices or Brace: No Transfers Transfer Destination Chair Transfer Technique Ambulation Transfer Ability Level of Assist Contact Guard Assistance,1 Person Assistance,Use of Upper Extremities Gait Assessment Gait Gait Assistance Required: Contact Guard Assist,Minimum Assistance,1 Person Assist Distance (Feet) 100 Able to Maintain Weight Bearing Status Yes During Gait Assistive Devices Assistive Device Gait Belt,Front Wheeled Walker Orthotic/Prosthetic Devices or Brace: No Gait Deviations General Gait Pattern Ataxic,Decreased Stride Length ,Decreased Feet Clearance Factors Limiting Gait Function Factors Limiting Gait Function Decreased Activity Tolerance, Decreased Strength,Difficulty Following Directions,Poor Balance,Poor Safety Awareness Comments Gait Comments Some ataxia with RW use, lifting up on some legs and sides of the walker, some shaking of arms with mobility, decreased awareness to the left and decreased scanning with eyes and head, pt presents with some confusion to command-following and PT must stop pt and point out steps for stair training Stair Climbing Assessment Evaluation Level of Assist On Stairs Contact Guard Assistance, Minimal Assistance,1 Person Assistance Devices Stair Climbing Assistive Devices Right Railing Technique/Endurance Stair Climbing Direction Ascend and Descend Stair Climbing Technique Step to Step Number of Steps Climbed 3 Stair Climbing Set # Repetitions (reps) 1 Comments Stair Climbing Comments Cues for hand placement and pt with shaking in hands, cues to use one rail only and to turn and use same rail to descend PT-Balance Assessment Sitting Balance and Reactions Static Sitting Balance Ability Good Dynamic Sitting Balance Ability Good Standing Balance and Reactions Static Standing Balance Ability Fair Dynamic Standing Balance Ability Fair Device Used FWW M5 PT-IP Objective Assessments Start: 01/21/25 14:37 Freq: NEEDED Status: Active Protocol: Document 01/21/25 13:56 AB (Rec: 01/21/25 14:53 AB [id number]) Orientation Orientation/Cognition Level of Alertness Alert Orientation Name Safety Awareness Decreased Safety Awareness Memory Description Short Term Impaired,Explosive Operator Supervisor Impaired Comments with slight confusion Gross Range of Motion Lower Extremity ROM Assessment Within Functional Limits Strength Lower Extremity Strength Hip 4-/5 Knee 4-/5 Comments Strength Comments per family: pt has R rotator cuff tear Muscle Tone Muscle Tone WNL Yes M6 PT-IP Treatment Start: 01/21/25 14:37 Freq: NEEDED Status: Active Protocol: Document 01/22/25 11:02 MB (Rec: 01/22/25 11:29 MB [id number]) Physical Therapy Treatment Education Education Provided Safety M7 PT-IP Assessment and Plan Start: 01/21/25 14:37 Freq: NEEDED Status: Active Protocol: Document 01/22/25 11:02 MB (Rec: 01/22/25 11:29 MB [id number]) PT Summary Assessment and Plan Potential Rehabilitation Potential Fair Status of Condition at Evaluation Evolving Summary Impairments Pain,ROM,Strength,Balance, Coordination,Sensation,Tone, Cognition,Bed Mobility, Transfers,Gait,Activity Tolerance Progress Towards Goals Progressing Toward Goals Assessment Summary Pt is progressing towards goals. He gait trains in hallway and performs steps with PT, cues and min to CGA with RW. He has decreased tracking with eyes and head and some decreased attention to the left. Pt presents with shaking in arms with mobility. He is hypoverbal and attempted conversation to is garbled x1. When PT asks pt's if she feels she can manage pt at home at his current presentation level, she states she does not know because he might just be performing well because it is a test. She is concerned about him going home and then having to come back to the hospital. She does talk about services. Overall, pt will require 24 hour assistance with assistance for all mobility and PT consult at d/c . Goals Bed Mobility Goal Independent Transfer Goal Standby Assistance,Front Wheeled Walker Gait Goal Standby Assistance,Front Wheel Walker Gait Distance 150 Other Goals up/down 7 steps 1 rail SBA Days to Meet Goals 5 Frequency of Treatment Frequency Of Treatment Once a Day Other frequency x1 Treatment Plan Physical Therapy Treatment Plan Bed Mobility Training,Transfer Training,Gait Training, Therapeutic Exercise,Balance Retraining,Discharge Planning, Hot or Cold Pack,Neuromuscular Re-ed,Coordination Retraining ,Manual Therapy Precautions Other Precautions falls Recommendations To Nursing Amount of Assist Needed 1 Person Assist Discharge Recommendations PT Discharge Recommendations Home with 24/ Assist Available,Home Health,Home vs SNF Transportation Needs at Discharge Private Vehicle,Wheelchair/ Cabulance
--- NOTE | 2025-01-22 12:08 | PC.NURSE ---
Patient worked with physical therapy and amublated in the halls, he was able to do some stairs. He is sitting up in his chair now and sleeping. He ate about 20% of his breakfast and drank 240cc. Patient will most likely discharge tomorrow. He is tolerating his ivf and drinking some water. at bedside and helpful to patient.
--- NOTE | 2025-01-22 13:53 | PM.PN.1 ---
Subjective Subjective Interval history: 89-year-old male with prior cerebellar stroke in 2019, CAD with prior STEMI, ischemic CM w/ and reduced EF of 45% previously though improved on recent echocardiogram, HTN, and recent greater than 1 month admit at [facility] w/acute SDH requiring MMA embolization, SDH evacuation and prolonged stay d/t waxing/waning mental status w/seizures and prolonged encephalopathy admitted 01/19/25 w/an acute febrile illness d/t presumed UTI and acute metabolic encephalopathy. 0zell reports he is feeling pretty good today. He was able to get sleep last night. His appetite remains quite poor. He has eaten only applesauce or pudding. He has been up once today to go to the bathroom but does not feel he was shaky. His does not yet feel he is good enough to return home. Exam Vital Signs (past 8 hours): - 01/21/25 12:00 01/21/25 15:00 01/21/25 16:00 Temperature 97.7 F 97.8 F Pulse Rate 68 68 Respiratory Rate 14 16 Blood Pressure 106/36 L 131/70 Pulse Oximetry 99 99 99 Oxygen Delivery Method Room Air Oxygen Flow Rate 0 0 Oxygen Delivery Method Room Air Oxygen Flow Rate 0 Narrative Exam Narrative: GEN: Pleasant elderly male, lying in bed,, Alert and oriented x 3, NAD HEENT:NC, Face symmetric CHEST: Respiratory excursions symmetric, CTAB CV: RRR, no M/R/G ABD: Soft, NT/ND, BT present in all 4 quadrants, no organomegaly or masses EXTR: warm, well perfused, no C/C/E SKIN: warm and dry, no rash NEURO: Alert and oriented x 3, nonfocal Objective Labs 01/22/25 04:57 01/22/25 04:57 Labs: Laboratory Results - last 24 hr 01/21/25 08:35 WBC 6.6 RBC 4.28 L Hgb 11.8 L Hct 36.4 L MCV 85.1 MCH 27.7 MCHC 32.6 RDW 18.1 H Plt Count 187 Neut % (Auto) 77.2 H Lymph % (Auto) 12.2 L [place] % (Auto) 9.4 Eos % (Auto) 0.1 L Baso % (Auto) 1.1 Neut # (Auto) 5100 Lymph # (Auto) 800 L [place] # (Auto) 600 Eos # (Auto) 0 Baso # (Auto) 100 Sodium 140 Potassium 3.9 Chloride 111 H Carbon Dioxide 21 L BUN 16 Creatinine 0.85 Estimated GFR > 60 BUN/Creatinine Ratio 18.8 Glucose 91 Hemoglobin A1c < 4.0 L Calcium 8.5 Magnesium 1.9 Total Bilirubin 0.7 AST 37 ALT 24 Alkaline Phosphatase 77 Ammonia 18 Total Protein 5.9 L Albumin 3.3 L Globulin 2.6 Albumin/Globulin Ratio 1.3 PFSH Medical History (Updated 01/20/25 @ 22:02 by Tavia Mejia RN) Stroke Hypertension Coronary artery disease Surgical History S/P angioplasty with stent Social History household members: spouse, family and friend(s) Smoking Status: Former smoker Assessment & Plan Assessment & Plan narrative: 1. Pansensitive E coli UTI Continues on Rocephin, but could transition to oral antibiotics at discharge. 2. Acute febrile illness Blood cultures are negative times 48 hours. Urine cultures as above. WBC count wnl. Continues empiric rocephin. 3. Acute metabolic encephalopathy Likely multifactorial from acute illness and recent SDH/prolonged hospitalization/seizures/critical illness. He is back to baseline cognitively. 4. Recent SDH requring MMA embolization and SDH evaculation CT done on admission showed improved midline shift and no new SDH. 5. CAD Stable and asymptomatic. 6. Ischemic CM No cardiac symptoms at this time. 7. HTN Blood pressures are primarily normotensive, though he did have 1 elevated blood pressure in the last 24 hours. 8. Thyroid nodule Will need outpatient dedicated thyroid US Code status Full Prophy On Lovenox Dispo Pending. PT rec's home w/HH and 24 hr assist. Anticipate he will be able to discharge home tomorrow. I did give recommendations for ways to increase his protein intake, which his expressed appreciation for. Time-Based Coding :: [TOTAL MINUTES] spent with patient and on the chart (including review of chart, obtaining history, exam, reviewing outside data, placing orders, documenting exam and treatment plan, and counseling patient) on [DATE]. Quality VTE Deep Vein Thrombosis/Pulmonary Embolism Present on Admission: No
--- NOTE | 2025-01-22 15:08 | CM.DPC ---
DCP Cont: Per MD, pt making progress with his tx for Ecoli UTI and likely will be stable for d/c home with family support and HH tomorrow Mon if he remains stable. Per PT, recommending home with family assist and HH. Per RN, pt has been ambulating the murillo with therapy and up to bedside chair and eating meals today. Plan: SW to follow for plan of d/c home with spouse, son, and DIL tomorrow Mon if medically stable and to confirm that [facility] received the updated clinicals and F2F and HH orders. DACIA Brown
[2025-01-22] MEDS: cefTRIAXone 1,000 MG in SODIUM CHLORIDE 0.9% 100 ML 200 MG IV (15:39)
[2025-01-22] MEDS: LATANOPROST 0.005% OPHTH 2.5 ML 1 DROPS EYE-BOTH (20:34)
[2025-01-22] MEDS: MELATONIN 3 MG TABLET PO (20:35)
[2025-01-23] VITALS: BP 128/85; PULSE 59; RESP 20; TEMP 36.6; O2SAT 97; O2SAT 99
[2025-01-23] MEDS: SODIUM CHLORIDE 0.9% 1,000 ML 100 ML IV (00:46)
[2025-01-23 04:00] VITALS: BP 141/77; PULSE 54; RESP 16; TEMP 36.4; O2SAT 100
[2025-01-23 06:02] LABS: Add Manual Diff / Slide Review NO; Basophils Absolute Auto 100 /uL (0-100); Basophils Percent Auto 1.4 % (0-2); Eosinophils Absolute Auto 100 /uL (0-450); Eosinophils Percent Auto 1.9 % (2-4); Hematocrit 31.1 % (41-53); Hemoglobin 10.4 g/dL (13.5-17.5); Lymphocytes Absolute Auto 1000 /uL (1100-4500); Lymphocytes Percent Auto 26.5 % (25-40); Mean Corpuscular HGB Conc 33.4 % (30-36); Mean Corpuscular Hemoglobin 28.1 PG (26-34); Monocytes Absolute Auto 400 /uL (0-900); Monocytes Percent Auto 10.4 % (3-14); Neutrophils Absolute Auto 2300 /uL (1500-7000); Neutrophils Percent Auto 59.8 % (50-75); Platelet Count 140 X10^3/uL (150-400); White Blood Cell Count 3.9 X10^3/uL (4.5-11.0)
[2025-01-23 06:16] LABS: Magnesium 1.9 mg/dL (1.6-2.3)
[2025-01-23 06:17] LABS: BUN Creatinine Ratio 20.6 (6-22); Blood Urea Nitrogen 14 mg/dL (9-20); Calcium 7.8 mg/dL (8.4-10.2); Carbon Dioxide 20 mmol/L (22-32); Chloride 110 mmol/L (98-107); Estimated Glomerular Filt Rate > 60 mL/min (>60); Glucose 94 mg/dL (80-110); HEMOLYSIS < 15 (0-50); Potassium 3.2 mmol/L (3.4-5.1); Sodium 137 mmol/L (137-145)
[2025-01-23] MEDS: PANTOPRAZOLE DR 20 MG TABLET PO (07:39)
[2025-01-23 08:00] VITALS: BP 163/83; PULSE 62; RESP 16; TEMP 36.3; O2SAT 99
[2025-01-23] MEDS: AMLODIPINE 5 MG TABLET 10 MG PO (08:03)
[2025-01-23] MEDS: CLOPIDOGREL 75 MG TABLET PO (08:03)
[2025-01-23] MEDS: DIVALPROEX DR 250 MG TABLET 500 MG PO (08:03)
[2025-01-23] MEDS: carvediloL 12.5 MG TABLET PO (08:03)
[2025-01-23] MEDS: ENOXAPARIN 40 MG/0.4 ML SYRINGE SUBCUT (08:04)
[2025-01-23] MEDS: ATORVASTATIN 20 MG TABLET 40 MG PO (08:04)
[2025-01-23] MEDS: LEVOCARNITINE 330 MG 990 EACH PO (08:04)
[2025-01-23] MEDS: POTASSIUM CHLORIDE 20 MEQ TAB 40 MEQ PO (08:04)
--- NOTE | 2025-01-23 09:37 | PC.NURSE ---
Assess- Patient is doing well this morning. He is using his walker and went to the bathroom today. He does not have a big appetite at breakfast but tends to eat better at lunch and dinner. Meds have been given to patient. He has to have them crushed in apple sauce and did do well with his swallow. Resting and is a big help in the room.
--- NOTE | 2025-01-23 11:02 | P.DS_ITS ---
History of Present Illness History of Present Illness Chief complaint: High fever, sent ot be checked for infection Narrative: From H&P: This is an 89-year-old male with a past medical history of cerebellar stroke in 2019, CAD with prior STEMI, and previous reduced ejection fraction with an EF of 45% previously though improved on recent echocardiogram, hypertension, and recent admission at the end of 2023 to [facility] with an acute left subdural hematoma where he had an embolization and subdural hematoma evacuation on November 04. He was at [facility] for approximately a month according to family, please see his previous discharge summary which is copied into my call coverage note for this information. In short, while he was there he had bouts of intermittent encephalopathy, with acute aphasia and seizures. He had no changes on his head CT with regard to his post evacuation fluid collection and midline shift, though a brain MRI done on 11/12 showed a subacute left frontal transcortical infarct indicative of a new stroke. He was on a variety of antiseizure medications with various side effects including his transient encephalopathy. Per the family he has been doing quite well, until yesterday evening when he became a bit more lethargic and confused, which continued this morning. Overnight he was measured at home to have a fever as high as 105, he was urged to come to the emergency room for further evaluation. With EMS family reports that his temperature was as high as 102?, though the patient has been afebrile since arrival in the emergency room. The remainder of his vitals are also unremarkable here. Laboratory evaluation did not show leukocytosis, normal coagulation studies, and a fairly unremarkable chemistry panel. Urinalysis was positive for 10-30 wbc's and moderate bacteria which was reflex for culture. Blood cultures were also obtained. Respiratory panel was negative for any infection. The patient continues to be confused from his baseline according to family at bedside. Given his recent complex admission with waxing and waning mentation I asked the ER to discuss possible transfer to [facility], which they did not feel was necessary at this time. Family was agreeable for admission to [facility] for treatment of presumptive acute encephalopathy due to acute cystitis with a broad differential. He was admitted to medicine service for further management. Discharge Providers Provider Date of admission: 01/20/25 19:11 Discharge Date: 01/23/25 Primary care physician: True Case MD Consults: 01/21/25 10:45 Consult to Occupational Therapy Evaluate & Treat Comment: Physician Instructions: Evaluate and treat 01/21/25 10:46 Consult to Physical Therapy Evaluate & Treat Comment: Physician Instructions: Evaluate and Treat Discharge provider: Quentin Chauhan MD Summary Hospital Course Discharge Diagnosis: 1. Pansensitive E coli UTI, present on admission and improved. Treated with Rocephin, with transition to oral antibiotics at discharge. 2. Acute febrile illness, resolved. Blood cultures are negative times 48 hours. Urine cultures as above. WBC count wnl. Continues empiric rocephin. 3. Acute septic encephalopathy, resolved. Likely multifactorial from acute illness and recent SDH/prolonged hospitalization/seizures/critical illness. He is back to baseline cognitively. 4. Recent SDH requring MMA embolization and SDH evaculation, stable. CT done on admission showed improved midline shift and no new SDH. 5. CAD, stable. Stable and asymptomatic. 6. Ischemic cardiomyopathy, stable. No cardiac symptoms at this time. 7. HTN, stable. Blood pressures are primarily normotensive, though he did have 1 elevated blood pressure in the last 24 hours. 8. Thyroid nodule Will need outpatient dedicated thyroid US Hospital Course: He was admitted with septic encephalopathy and urinary tract infection and treated with IV antibiotics and IV fluids. He improved with regard to mental status and cultures revealed E coli, pansensitive. His blood cultures remained negative. Did improve. Imaging was notable for an incidental finding of a thyroid nodule. On the day of discharge he was at baseline, and I spoke with the in his . He will return home on oral antibiotics and resumption of home health with [facility]. He will follow up with PCP, and would benefit from ultrasound of his thyroid outpatient. Status at Discharge Cognitive/behavioral status at discharge: oriented Functional status at discharge: uses cane/walker Overall status at discharge: patient is progressing back to baseline Time Spent with Patient Time spent: Greater than 30 minutes Exam Vital Signs (past 8 hours): - 01/23/25 04:00 01/23/25 08:00 01/23/25 09:29 Temperature 97.5 F L 97.3 F L Pulse Rate 54 L 62 Respiratory Rate 16 16 Blood Pressure 141/77 H 163/83 H Pulse Oximetry 100 99 Oxygen Delivery Method Room Air Oxygen Flow Rate 0 0 Oxygen Delivery Method Room Air Oxygen Flow Rate 0 Narrative Exam Narrative: NAD, alert and oriented. Fluent speech. Lungs are clear, normal rate and effort. Heart is regular, no murmur gallop or rub. Abdomen is soft, non distended. Extremities are free of edema. Objective ECG Impression: Normal sinus rhythm Left axis deviation Inferior infarct , age undetermined Anteroseptal infarct , age undetermined NO SIGNIFICANT CHANGE FROM PRIOR TRACING Imaging Multiple studies:: Radiologist's impression: Chest x-ray: No acute cardiopulmonary abnormality is seen. Brain CT: Interval left craniotomy, with decreased fluid collection overlying the left cerebral convexity. Decreased left midline shift, measuring 4 millimeters, previously 7 millimeters. No herniation. No hemorrhagic infarct. Head and neck CTA: No significant intracranial arterial abnormality is seen. 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 Please see same day head CT for further discussion. Large left thyroid nodule. Consider outpatient thyroid ultrasound. Labs 01/23/25 05:41 01/23/25 05:41 Labs: Laboratory Results - last 24 hr 01/23/25 05:41 WBC 3.9 L RBC 3.70 L Hgb 10.4 L Hct 31.1 L MCV 84.0 MCH 28.1 MCHC 33.4 RDW 18.0 H Plt Count 140 L Neut % (Auto) 59.8 Lymph % (Auto) 26.5 [place] % (Auto) 10.4 Eos % (Auto) 1.9 L Baso % (Auto) 1.4 Neut # (Auto) 2300 Lymph # (Auto) 1000 L [place] # (Auto) 400 Eos # (Auto) 100 Baso # (Auto) 100 Sodium 137 Potassium 3.2 L Chloride 110 H Carbon Dioxide 20 L BUN 14 Creatinine 0.68 Estimated GFR > 60 BUN/Creatinine Ratio 20.6 Glucose 94 Calcium 7.8 L Magnesium 1.9 PFSH Medical History Stroke Hypertension Coronary artery disease Surgical History S/P angioplasty with stent Social History household members: spouse, family and friend(s) Smoking Status: Former smoker Discharge Assessment & Plan Assessment and Plan Assessment: 1. Pansensitive E coli UTI, present on admission and improved. Treated with Rocephin, with transition to oral antibiotics at discharge. 2. Acute febrile illness, resolved. Blood cultures are negative times 48 hours. Urine cultures as above. WBC count wnl. Continues empiric rocephin. 3. Acute septic encephalopathy, resolved. Likely multifactorial from acute illness and recent SDH/prolonged hospitalization/seizures/critical illness. He is back to baseline cognitively. 4. Recent SDH requring MMA embolization and SDH evaculation, stable. CT done on admission showed improved midline shift and no new SDH. Thyroid nodule= needs OP US. Plan of Treatment: Discharge home with 5 additional days of antibiotics, cephalexin 500 q.i.d.. The patient is asked to see PCP within a week and would benefit from an ultrasound of the thyroid on an outpatient basis. Discharge Plan Discharge Plan Patient Disposition: Home Health Service Transfer to: [facility] Provider Discharge Comment: Stable for discharge home on oral antibiotics, resume [facility]. Discharge orders & Medications Prescriptions: New cephalexin 500 mg capsule 500 mg PO QID Qty: 20 0RF Continued latanoprost 0.005 % drops 1 drp EYE-BOTH DAILY carvedilol 12.5 mg tablet 12.5 mg PO BID Patient Comments: [NO ORIGINAL SIG] clopidogrel 75 mg tablet 75 mg PO DAILY amlodipine 5 mg tablet 10 mg PO DAILY levocarnitine 330 mg tablet 990 mg PO BID divalproex 500 mg tablet,delayed release (DR/EC) 500 mg PO BID telmisartan [Micardis] 80 mg Tablet 80 mg PO DAILY omeprazole 20 mg capsule,delayed release(DR/EC) 20 mg PO DAILY rosuvastatin 20 mg tablet 20 mg PO DAILY Follow up/Referrals: True Case MD [Primary Care Provider] - Diet/Activity/Treatments Diet: Low-sodium Activity: As toerated. Skin/Wound/Dressing Care Report to your healthcare provider any signs of infection, such as:: chills, fever and night sweats Visit Report/Discharge Packet Instructions: DI for Urinary Tract Infection (UTI), Cephalexin Stand Alone Forms: Patient Portal/API, Stroke Signs & Symptoms Discharge Data Primary Care Provider: True Case Quality VTE Deep Vein Thrombosis/Pulmonary Embolism Present on Admission: No
--- NOTE | 2025-01-23 11:12 | OT.IPNOTE ---
Chart reviewed for OT eval and treat. Pt is planned for discharge home today with home health and mobilizing in the halls with nursing. No OT needs at this time. Will hold for discharge.
--- NOTE | 2025-01-23 11:35 | CM.DPNOTE ---
DCP Note [employer] reviewed EMR Per chart review/provider in morning rounds, pt cleared to dc home with family and HH today. Per Carm[facility] at [facility] , can accept pt back. [employer] completed HH order and emailed f2f, order, and dc sum draft to Carmela. f2f placed in scanning folder. [employer] met with pt and spouse in room. confirmed agreement to dc home with [facility] today. [employer] gave copy of [employer] booklet for any future potential local comm resource LTC needs. Deny other CM/DCP needs at this time,. Son will be here to take both spouse/pt home at 1330. [employer] updated RN. P: dc today with family support and [facility] to follow for resumption of care. no further CM needs at this time, will continue to follow as needed DACIA Ashley
[2025-01-23 12:00] VITALS: BP 144/78; PULSE 60; RESP 15; TEMP 36.3; O2SAT 100
== END 2025-01-23 13:32 | disposition home health service (06) | DRG 689 ==
LOC: ED 16:36 → AC 19:12
PROVIDERS: Family Medicine; Admitting Provider Internal Medicine; Emergency Provider Emergency Medicine; PCP Internal Medicine; Referring Provider Emergency Medicine; Visit Provider Internal Medicine
DX: N30.00 Acute cystitis without hematuria (principal); G93.41 Metabolic encephalopathy; I25.10 Atherosclerotic heart disease of native coronary artery without angina pectoris; I10 Essential (primary) hypertension; I25.5 Ischemic cardiomyopathy; E04.1 Nontoxic single thyroid nodule; R50.9 Fever, unspecified; B96.20 Unspecified Escherichia coli [E. coli] as the cause of diseases classified elsewhere; I25.2 Old myocardial infarction; Z86.69 Personal history of other diseases of the nervous system and sense organs; Z98.890 Other specified postprocedural states; Z86.73 Personal history of transient ischemic attack (TIA), and cerebral infarction without residual deficits; Z95.5 Presence of coronary angioplasty implant and graft; Z79.02 Long term (current) use of antithrombotics/antiplatelets; Z86.79 Personal history of other diseases of the circulatory system; Z87.891 Personal history of nicotine dependence
CPT/HCPCS: 36415; 70450; 70496; 70498; 71045; 80048; 80053; 81003; 81015; 81025; 82140; 83036; 83605; 83690; 83735; 84145; 84484; 85025; 85610; 85730; 87040; 87077; 87086; 87186; 87633; 93005; 96365; 96366; 97116; 97162; 97530; 99284; J0696; J1650; Q9967